=== PATIENT | female | born 1945 | race Caucasian/White ===

== ENCOUNTER → 2016-06-30 | Outpatient (CLI) | payer OTHER | LOC: MMPC 11:11 | PROVIDERS: ATTEND Physician Assistant | DX: Z76.0 Encounter for issue of repeat prescription (principal) | CPT/HCPCS: 99202; G0463 ==

== ENCOUNTER → 2016-07-26 | Outpatient (CLI) | payer OTHER | LOC: MMPC 11:11 | PROVIDERS: ATTEND Internal Medicine | DX: E11.36 Type 2 diabetes mellitus with diabetic cataract (principal); E11.65 Type 2 diabetes mellitus with hyperglycemia; E66.01 Morbid (severe) obesity due to excess calories; E03.9 Hypothyroidism, unspecified; M17.11 Unilateral primary osteoarthritis, right knee; E11.42 Type 2 diabetes mellitus with diabetic polyneuropathy; R01.1 Cardiac murmur, unspecified | CPT/HCPCS: 99215; G0463 ==

== ENCOUNTER → 2016-10-18 | Outpatient (CLI) | payer OTHER ==
[2016-10-18 10:32] LABS: BASOPHILS # (AUTO) 0.15 10*3/UL; BASOPHILS % (AUTO) 2.1 % (0-1); EOSINOPHILS # (AUTO) 0.28 10*3/UL; EOSINOPHILS % (AUTO) 3.9 % (0-8); HEMATOCRIT 33.9 % (37.0-47.0); LYMPHOCYTES # (AUTO) 1.86 10*3/uL; MEAN CORPUSCULAR HEMOGLOBIN 31.3 PG (27-31); MEAN CORPUSCULAR HGB CONC 32.4 g/dL (33-37); MEAN CORPUSCULAR VOLUME 96.6 FL (81-99); MEAN PLATELET VOLUME 9.9 FL (7.4-12.2); MONOCYTES # (AUTO) 0.48 10*3/UL (0.3-0.8); MONOCYTES % (AUTO) 6.7 % (5-15); NEUTROPHILS # (AUTO) 4.36 10*3/UL; RED BLOOD COUNT 3.51 10^6/uL (4.20-5.40)
[2016-10-18 10:44] LABS: CALCIUM 10.4 mg/dL (8.7-10.7); SERUM ALBUMIN 4.1 g/dL (3.5-4.8)
[2016-10-18 10:46] LABS: CHOL/HDL RATIO 8.93 RATIO (0-4.0)
[2016-10-18 10:48] LABS: HEMOGLOBIN A1C 6.14 % (4.2-6.0)
[2016-10-18 10:58] LABS: PLATELET MORPHOLOGY COMMENT NORMAL MORPHOLOGY (NORM); RBC MORPHOLOGY COMMENT NORMAL MORPHOLOGY (NORM); WBC MORPHOLOGY COMMENT NORMAL MORPHOLOGY (NORM)
[2016-10-18 11:03] LABS: LDL CHOLESTEROL,CALCULATED 78.8 mg/dL
[2016-10-18 11:10] LABS: BILIRUBIN,URINE NEGATIVE (NEG); CLARITY,URINE CLEAR (CLEAR); COLOR,URINE YELLOW; GLUCOSE, URINE (UA) 100 mg/dL (NEG); NITRATE,URINE NEGATIVE (NEG); OCCULT BLOOD,URINE MODERATE (NEG); PH,URINE 5.5 (5.0-8.5); PROTEIN,URINE >300 mg/dl (NEG); UROBILINOGEN,URINE 0.2 mg/dL (0.2)
[2016-10-18 11:29] LABS: SQUAMOUS EPITHELIAL CELL,UR MODERATE
[2016-10-18 11:30] LABS: BACTERIA,URINE FEW
--- NOTE | 2016-10-18 11:53 | DI ---
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 Previous Exam: None at this facility. There is no acute soft tissue or bony abnormality. Heart size is normal. Lungs are clear. Mediastinal structures are normal. There are no pulmonary nodules. IMPRESSION: No masses identified.
[2016-10-18 12:12] LABS: CREATININE, URINE 80.4 MG/DL (15-500)
[2016-10-18 14:04] LABS: URINE SAMPLE TYPE CLEAN CATCH URINE
== END ==
LOC: RAD 10:08
PROVIDERS: ATTEND Internal Medicine
DX: D3A.090 Benign carcinoid tumor of the bronchus and lung (principal); E11.40 Type 2 diabetes mellitus with diabetic neuropathy, unspecified; Z79.4 Long term (current) use of insulin; N39.41 Urge incontinence; E66.01 Morbid (severe) obesity due to excess calories; E78.5 Hyperlipidemia, unspecified; E03.9 Hypothyroidism, unspecified; G47.33 Obstructive sleep apnea (adult) (pediatric); M17.11 Unilateral primary osteoarthritis, right knee; R01.1 Cardiac murmur, unspecified; H35.00 Unspecified background retinopathy; R45.4 Irritability and anger
CPT/HCPCS: 36415; 71020; 80053; 80061; 81001; 82043; 83036; 84443; 85025

== ENCOUNTER 2017-04-20 16:25 | Inpatient (IN) ==
[2017-04-20] MEDS ORDERED: NORMAL SALINE 10 ML SYRINGE FLUSH IVP PRN ×2 (17:06→19:37)
[2017-04-20] MEDS ORDERED: Lidocaine 1% 10 MG/ML - 20 ML VIAL SUBCUT ONE ×2 (17:11→21:30)
[2017-04-20 17:13] LABS: BASOPHILS # (AUTO) 0.02 10*3/UL; BASOPHILS % (AUTO) 0.3 % (0-1); EOSINOPHILS # (AUTO) 0.25 10*3/UL; EOSINOPHILS % (AUTO) 3.4 % (0-8); Hematocrit [HCT] 30.3 % (37.0-47.0); Hemoglobin [HGB] 9.7 g/dL (12.0-16.0); LYMPHOCYTES # (AUTO) 1.72 10*3/uL; MEAN CORPUSCULAR VOLUME 96.8 FL (81-99); MEAN PLATELET VOLUME 10.2 FL (7.4-12.2); MONOCYTES # (AUTO) 0.54 10*3/UL (0.3-0.8); MONOCYTES % (AUTO) 7.4 % (5-15); NEUTROPHILS # (AUTO) 4.74 10*3/UL; NEUTROPHILS % (AUTO) 64.9 % (50-80); RED BLOOD COUNT 3.13 10^6/uL (4.20-5.40)
[2017-04-20 17:17] LABS: PLATELET MORPHOLOGY COMMENT NORMAL MORPHOLOGY (NORM); RBC MORPHOLOGY COMMENT NORMAL MORPHOLOGY (NORM); WBC MORPHOLOGY COMMENT NORMAL MORPHOLOGY (NORM)
[2017-04-20 17:26] LABS: BUN/CREATININE RATIO 24.33 (6-20); SERUM ALBUMIN 4.2 g/dL (3.5-4.8); Uric Acid 9.8 mg/dl (2.5-7.5)
--- NOTE | 2017-04-20 18:42 | DI ---
XR KNEE 3 VW,04/20/2017 5:06 PM: Clinical History: Right knee pain Previous Exam: December 15, 2016 Findings: AP, lateral and sunrise views of the right knee are obtained, and demonstrate complete loss of joint space within the medial compartment with underlying sclerosis and some hypodensity consistent with perez bchondral cyst formation. Degenerative changes are noted within the anterior compartment as well. There is osteophyte formation within the anterior compartment. The proximal tibiofibular joint is unremarkable. There are some calcifications within the skin. Impression: Tricompartmental degenerative osteoarthritis of the right knee worst within the medial compartment es sentially unchanged from the prior exam.
--- NOTE | 2017-04-20 19:22 | PDOC ---
Lower Extremity Problem HPI - General Chief Complaint: Lower Extremity Problem/Injury Stated Complaint: LEG PAIN/ INABILITY TO WALK Date Seen by Provider: 04/20/17 Time Seen by Provider: 16:45 Source: POSITIVE: Patient Exam Limitations: POSITIVE: No limitations Nurse's Notes Reviewed & Considered: Yes - History of Present Illness Initial Comments: The patient is a 72-year-old female who is brought to the emergency room by ambulance. Patient has a history of severe chronic right knee pain. She also has a history of diabetes mellitus and chronic renal failure. She was seen in our emergency room in December with pedal edema and severe right knee pain and reportedly some right knee swelling and erythema. She was noted to be in renal failure at that time and was referred to [facility]. Patient was diagnosed with severe degenerative arthritis of the right knee and renal failure. She was evaluated by nephrology and patient states that she has an appointment with Dr. Grey in a few days for consideration of shunt placement. Patient states she has a history of hyperuricemia and thinks that she may be having episodes of "gout pain" in her right knee since December. She's had a cholecystectomy and surgery for small bowel obstructions and his head surgery for an umbilical hernia. She lives with her , who has multiple medical issues. Patient states that since December, at least, she has been able to ambulate in their house trailer only with the assistance of her . Patient relates that her has "medical issues "and is now no longer able to support her. Patient is morbidly obese. Body Location Affected: REPORTS: Lower Extremity (R) (Right knee) Timing: REPORTS: Constant, Getting Worse Duration: >1 week (Progressive pain to her right knee) Severity: Severe Recent Injury: REPORTS: No Context of Injury: DENIES: Fall, Twist, Direct Blow, Incision, Burn, Crush, Stab , Prolonged Pressure on Ext, Other Quality: REPORTS: Aching Modifying Factors: REPORTS: Walking (Patient states that the pain in her right knee has progressed to the point where she is not able to ambulate) Associated Symptoms: DENIES: Chest Pain, Shortness of Breath, Rapid Heart Rate, Fainting, Other Similar Symptoms Previously: Yes (see above) Recent Care Received: REPORTS: Recently Seen, Treated by MD, Hospitalized (See above) Any Prior Injuries Related to Current Complaint?: No - Patient Home Medications Home Medications: Home Medications gabapentin 300 mg capsule 300 mg PO QDAY #90 cap 01/19/17 glyburide 5 mg tablet 5 mg PO BID #180 tab 01/19/17 levothyroxine 88 mcg tablet 88 mcg PO DAILY #90 tab 01/19/17 metoprolol succinate ER 25 mg tablet,extended release 24 hr 25 mg PO QDAY #90 tab 01/19/17 torsemide 20 mg tablet 20 mg PO QDAY #90 tab 01/19/17 venlafaxine ER 150 mg capsule,extended release 24 hr 150 mg PO QAM #90 cap 01/19 lisinopril 10 mg tablet 10 mg PO QDAY #30 tab 01/23/17 tramadol 50 mg tablet 50 mg PO Q4H PRN #180 tab 02/01/17 Blood Sugar Diagnostic [Assure Prism Multi] 0 ea .ROUTE .MEDSUPPLY 04/20/17 Sour Domingo Extract [Tart Domingo Extract] 1,000 mg PO DAILY 04/20/17 - Patient Allergies Allergies/Adverse Reactions: Allergies 3 Allergy/AdvReac Type Severity Reaction Status Date / Time Penicillins AdvReac Severe SWELLING Verified 04/20/17 16:36 Vtnveme-Hiw-Vlr Reductase AdvReac Mild SWELLING Verified 04/20/17 16:36 Inhibitor msg AdvReac Intermediate SWELLING Uncoded 04/20/17 16:36 Past Medical History - heen HEENT History: Denies History Cardiovascular History: Hypertension Respiratory History: Home CPAP Use, Other (please comment) Additional Respiratory History: 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 TOLD SHE'D OUT LIVE THEM SO DIDN'T NEED REMOVED Gastrointestinal History: Small Bowel Obstruction Additional Gastrointestinal History: X5 OR 6. MESH SCREENS PLACED TO SUPPORT BOWEL Genitourinary History: Denies History Endocrine History: Type 2 Diabetes (oral), Hypothyroidism Musculoskeletal History: Gout, Joint Pain Prosthesis or Implant: No Additional Musculoskeletal History: BAD KNEES. NEUROPATHY IN FEET Neurological History: Denies History Blood Disorders: Denies History Psychiatric History: Depression Cancer History: Lung Cancer Treatment / Date(s) of Treatment: TOLD SHE WOULD OUT LIVE THEM In Past Year Been Physically Harmed or Verbally Threatened: No History of MDRO: No Tobacco Use: Former Smoker In the Past 12 Months, Have Used or Abuse Any Substance: None Previous Surgical History: Yes Type / Date of Surgery: APPY AGE 5, T&A AGE 7. SCREENS IN SMALL BOWEL. Anesthesia Reactions: No Past Medical History Reviewed: Reviewed - No Changes ROS - Limitations ROS Limitations: No Limitations Constitution: REPORTS: Denies Symptoms Cardiovascular: REPORTS: Denies Cardiac Symptoms Respiratory: REPORTS: Denies Resp Symptoms Neurological: REPORTS: Denies Neuro Symptoms Gastrointestinal: REPORTS: Denies GI Symptoms Endocrine: REPORTS: Denies Symptoms Musculoskeletal: REPORTS: Joint Pain (Right knee pain) Genitourinary: REPORTS: Denies Symptoms Eyes: REPORTS: Denies Symptoms ENT: REPORTS: Denies Symptoms Skin: REPORTS: Denies Skin Symptoms Lympathic: REPORTS: Denies Lympathic Symptoms Immunologic: POSITIVE: Denies Symptoms Psychiatric: POSITIVE: Denies Psych Symptoms Lower Ext Problem Exam - General Appearance General Appearance: POSITIVE: Alert, Cooperative, No Evidence of Trauma, Moderate Distress, Other (Morbidly obese). NEGATIVE: No Acute Distress - Extremities Lower Extremity: POSITIVE: Other (Examination of the extremities show that the patient has full range of motion, painless, left knee. Full flexion right knee is painful. The right knee has some mild warmth to it. There are no joint effusions. No redness. No deformities. No sensory motor or vascular deficits. Ultrasound of the right knee by radiologist shows no effusions; attempted arthro-centesis was unsuccessful, by radiologist, because of lack of synovial fluid. Arthrocentesis was attempted due to the patient's reported history of gout in her right knee.) Joint Exam: POSITIVE: Normal ROM, Unable to Bear Weight, Other (See note above on lower extremity evaluation). 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 Nml, Pharynx Inspect. Nml, PERRL, EOMI - Respiratory / CVS Respiratory / CVS: POSITIVE: No Respiratory Distress, Breath Sounds Normal, Regular Rate/Rhythm, Heart Sounds Normal Peripheral Pulses: Radial (R): 2+, Radial (L): 2+, Dorsalis-pedis (R): 2+, Dorsalis-pedis (L): 2+ - Abdomen Abdomen: Soft: (All Quadrants), Normal Bowel Sounds: (All Quadrants), Denies Tenderness: (All Quadrants), No Splenomegaly: (All Quadrants), No Hepatomegaly: (All Quadrants), No Guarding: (All Quadrants), No Rebound: (All Quadrants), No Palpable Pulse: (All Quadrants), No Palpabale Mass: (All Quadrants), No Distention: (All Quadrants), No Rigidity: (All Quadrants) Images - Uploaded Photos Uploaded Photos: - Lower Extremities Lower Extremities: 1 - Pain, right knee Procedure - Additional Procedures Additional Procedures: Arthrocentesis (Radiologist attempted arthrocentesis, in view of the patient reported history of gout to the right knee. Ultrasound of the right knee showed no effusion. Attempted arthrocentesis by radiologist unsuccessful. Please refer to his procedure note.) Lower Ext Problem Progress - Results Reviewed by me Xrays/CTs/US Reviewed by me: Yes Discussed with Radiologist: No Radiology Findings: X-ray right knee shows severe degenerative changes of the right knee, especially the medial compartment. Lab Results Reviewed by Me: Yes (renal functions stable since last CMP in December) CBC and BMP: 04/20/17 17:10 04/20/17 17:10 - Patient's Progress Pain Medication Addressed: POSITIVE: No (Patient not in much pain as long as she is off her leg.) Re-Examine Time: 19:05 Status: POSITIVE: Unchanged, Re-Examined - Consult Consult (If Yes, Name of Consulting MD & Time Called): Yes (Dr. Dumont, hospitalist, [id number]) Consulting MD will see pt:: POSITIVE: [facility] [place] Admit Counseled: POSITIVE: Patient, RE: Lab Results, RE: Radiology Results, RE: DX, RE : Need for F/U Patient Care Time - Estimated PCT Patient Care Time (In Minutes): 60 Vital Signs - Recent Vital Signs Vital Signs: Vital Signs (Last 8 hours) Temp Pulse Resp BP Pulse Ox 04/20/17 15:48 96.8 F 92 18 158/90 99 - VS Reviewed Vital Signs Reviewed: Yes Discharge Clinical Impression: Knee arthropathy, Type 2 diabetes mellitus with diabetic neuropathy, without long-term current use of insulin, Chronic renal failure, Obesity Discharge Disposition: Admit to Inpatient Condition: Fair Date Decision to Admit to Inpatient: 04/20/17 Time Decision to Admit to Inpatient: 19:00
[2017-04-20] MEDS ORDERED: ONDANSETRON 4 MG/2 ML VIAL IVP PRN (19:37)
[2017-04-20] MEDS ORDERED: CALCIUM CARBONATE 500 MG (TUMS) CHEWABLE TABLET PO PRN (19:37)
[2017-04-20] MEDS ORDERED: LIDOCAINE W/ SODIUM BICARB 0.5 ML SYR SUBD PRN (19:37)
[2017-04-20] MEDS ORDERED: DOCUSATE 100 MG CAPSULE PO PRN (19:37)
[2017-04-20] MEDS ORDERED: BETAMET ACET/BETAMET NA PH 6 MG/1 ML - 5 ML IM SCH (21:30)
--- NOTE | 2017-04-20 22:20 | PDOC ---
HPI - History of Present Illness Date of Service: 04/20/17 Time of Service: 22:15 Chief Complaint: Right knee pain History of Present Illness: This very pleasant 72-year-old female with right knee pain. Has been progressively getting worse over the years but really took a turn in December 2016 when she had to be admitted in [place], [place], in relation to her kidney disease and right knee pain. They told her that she may have gout. They placed on some medications that seemed to help but then stopped them at the time of discharge. I do not have those records for review. The patient notes that she has been having more limited mobility and has gone from a cane to a walker. She is worried about falling at home due to her right knee pain. She occasionally takes tramadol for this. She cannot take anti-inflammatories due to her end-stage kidney disease. Tylenol has not really helped. She's never done injections. She had an appointment scheduled with an orthopedic physician , but canceled, as somebody had told her that she needed to lose weight prior to knee replacement if that was going to be an option. X-rays show 3 compartment osteoarthritis. Overall, her pain threshold is high, but it is been very limiting for her knee pain and she did not feel like she could walk very well today so she came in for evaluation. In the emergency room, they arranged for an aspiration but no fluid was obtained. This was done by radiology. Past Medical History Medical History: 1. End-stage renal disease, stage IV to stage V. 2. Hypertension. 3. Hypercholesterolemia. 4. Diabetes mellitus type II. 5. Anemia of end-stage renal disease. 6. Per my review of the medical record, carcinoid tumor of the lung. Surgical History: 1. Cholecystectomy. 2. Appendectomy. 3. Umbilical hernia repair and multiple surgeries related to small bowel obstructions since subsequently. Pertinent Family History: No history of kidney disease in the family. Past Social History: Patient is been 3 times. Is been her current for over 24 years. 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 She had 4 children, but one of her sons due to [place]'s tran. She has a daughter with Lohn's tran Tobacco Use: Former Smoker In the Past 12 Months, Have Used or Abuse Any of the Following Substance: None Alcohol Use: None Medication / Allergies Home Medications: Home Medications 3 Medication Instructions Recorded Confirmed Type gabapentin 300 mg capsule 300 mg PO QDAY #90 cap 01/19/17 04/20/17 Rx glyburide 5 mg tablet 5 mg PO BID #180 tab 01/19/17 04/20/17 Rx levothyroxine 88 mcg tablet 88 mcg PO DAILY #90 tab 01/19/17 04/20/17 Rx metoprolol succinate ER 25 mg 25 mg PO QDAY #90 tab 01/19/17 04/20/17 Rx tablet,extended release 24 hr torsemide 20 mg tablet 20 mg PO QDAY #90 tab 01/19/17 04/20/17 Rx venlafaxine ER 150 mg 150 mg PO QAM #90 cap 01/19/17 04/20/17 Rx capsule,extended release 24 hr lisinopril 10 mg tablet 10 mg PO QDAY #30 tab 01/23/17 04/20/17 Rx tramadol 50 mg tablet 50 mg PO Q4H PRN #180 tab 02/01/17 04/20/17 Rx Blood Sugar Diagnostic [Assure 0 ea .ROUTE .MEDSUPPLY 04/20/17 04/20/17 History Prism Multi] Sour Domingo Extract [Tart Domingo 1,000 mg PO DAILY 04/20/17 04/20/17 History Extract] Allergies/Adverse Reactions: Allergies 3 Allergy/AdvReac Type Severity Reaction Status Date / Time Penicillins AdvReac Severe SWELLING Verified 04/20/17 16:36 Eimbpep-Sbn-Xxi Reductase AdvReac Mild SWELLING Verified 04/20/17 16:36 Inhibitor msg AdvReac Intermediate SWELLING Uncoded 04/20/17 16:36 Review of Systems - Review of Systems All Systems: Reviewed & No Additional Complaints Except as Stated (I did 12 point review of systems and other than that discussed in history present illness the review systems is negative. Exceptions are noted below.) - Cardiovascular Cardiovascular: REPORTS: Other (History of murmur.) Exam - Vitals Vital Signs: Vital Signs Temperature 98.0 F Temperature Source Temporal Artery Scan Pulse Rate [Pulse Oximeter] 82 Pulse Rate 88 Respiratory Rate 21 Blood Pressure [Right Arm] 156/74 Blood Pressure 158/84 Pulse Ox 98 Oxygen Delivery Method Room Air - General General Appearance: No Acute Distress, Cooperative - Head Head Exam: Normal Inspection, Normocephalic, Atraumatic - Eye Eye Exam: POSITIVE: No Scleral Icterus - ENT ENT Exam: POSITIVE: Mucous Membranes Moist - Neck Neck Exam: Normal Inspection, No Tenderness, No Lymphadenopathy, No Thyromegaly - Respiratory Respiratory Exam: POSITIVE: Clear to Auscultation - Bilaterally, Breathing Non Labored, Normal to Percussion and Palpation - Cardiovascular Cardiovascular Exam: POSITIVE: RRR, No Murmur, No Clicks, No Gallops, No Rubs, No JVD - GI/Abdominal GI/Abdominal Exam: POSITIVE: Normal Bowel Sounds, Non Tender, Non Distended, Soft - Rectal Rectal Exam: POSITIVE: Deferred - External Exam: POSITIVE: Deferred Exam: POSITIVE: Deferred - Extremities Extremities Exam: POSITIVE: No Clubbing Present, No Edema Present, No Cyanosis Present Additional Extremities Exam Details: Tenderness to palpation on knee on lateral, medial, and midline palpation. - Neurological Neurological Exam: POSITIVE: Alert, Oriented x 3, No Facial Droop, Speech Intact / Clear, Moves All Extremities Equally - Psychiatric Psychiatric Exam: POSITIVE: Normal Affect, Normal Mood - Integumentary Integumentary Exam: POSITIVE: Normal Color, Warm, Dry, Intact Results - Labs CBC and BMP: 04/20/17 17:10 04/20/17 17:10 Additional Lab Results: Laboratory Results 04/20/17 04/20/17 Range/Units 17:10 17:10 WBC 7.30 (4.8-10.8) 10^3/uL RBC 3.13 L (4.20-5.40) 10^6/uL Hgb 9.7 L (12.0-16.0) g/dL Hct 30.3 L (37.0-47.0) % MCV 96.8 (81-99) FL MCH 31.0 (27-31) PG MCHC 32.0 L (33-37) g/dL RDW Std Deviation 47.8 (39-50) fL RDW Coeff of Miranda 14.1 (11.5-14.5) % Plt Count 232 (140-350) 10*3/uL MPV 10.2 (7.4-12.2) FL Immature Gran % (Auto) 0.4 (0-5) % Neut % (Auto) 64.9 (50-80) % Lymph % (Auto) 23.6 (10-50) % [place] % (Auto) 7.4 (5-15) % Eos % (Auto) 3.4 (0-8) % Baso % (Auto) 0.3 (0-1) % Immature Gran # (Auto) 0.03 10*3/UL Neut # (Auto) 4.74 10*3/UL Lymph # (Auto) 1.72 10*3/uL [place] # (Auto) 0.54 (0.3-0.8) 10*3/UL Eos # (Auto) 0.25 10*3/UL Baso # (Auto) 0.02 10*3/UL WBC Morphology Comment Normal morphology (NORM) Plt Morphology Comment Normal morphology (NORM) RBC Morph Comment Normal morphology (NORM) Sodium 137 (135-145) meq/L Potassium 5.1 (3.8-5.2) meq/L Chloride 104 (98-112) meq/L Carbon Dioxide 19 L (23-33) meq/L Anion Gap 14 (5-20) BUN 73 H (7-22) mg/dL Creatinine 3.0 H (0.50-1.20) mg/dL Estimated GFR 15 (>60 ml/min/1.73m(2)) BUN/Creatinine Ratio 24.33 H (6-20) Glucose 189 H (78-110) mg/dL Calculated Osmolality 310.0 H (267-292) mOsm/kg Uric Acid 9.8 H (2.5-7.5) mg/dl Calcium 10.6 (8.7-10.7) mg/dL Total Bilirubin 0.3 (0.3-1.2) mg/dL AST 14 (8-39) IU/L ALT 22 (9-52) IU/L Alkaline Phosphatase 110 (38-126) IU/L C-Reactive Protein 2.1 H (0.0-0.9) mg/dL Total Protein 7.7 (6.1-8.0) g/dL Albumin 4.2 (3.5-4.8) g/dL Globulin 3.5 (2.50-4.10) g/dL Albumin/Globulin Ratio 1.20 L (1.3-2.0) mg/g - Imaging Status: Image Reviewed by Me (X-ray shows arthritis of the right knee.) Assessment and Plan - Patient Problems (1) Osteoarthritis of right knee Current Visit: Yes Status: Acute Code(s): M17.11 - Unilateral primary osteoarthritis, right knee Qualifiers: Osteoarthritis type: primary Qualified Code(s): M17.11 - Unilateral primary osteoarthritis, right knee (2) Hypertension Current Visit: Yes Status: Acute Code(s): I10 - Essential (primary) hypertension Qualifiers: Hypertension type: essential hypertension Qualified Code(s): I10 - Essential (primary) hypertension (3) Chronic renal failure Current Visit: Yes Status: Acute Code(s): N18.9 - Chronic kidney disease, unspecified Qualifiers: Chronic kidney disease stage: stage 4 (severe) Qualified Code(s): N18.4 - Chronic kidney disease, stage 4 (severe) (4) Type 2 diabetes mellitus with diabetic neuropathy, without long-term current use of insulin Current Visit: Yes Status: Chronic Onset Date: 10/17/16 Code(s): E11.40 - Type 2 diabetes mellitus with diabetic neuropathy, unspecified (5) Hypothyroidism Current Visit: Yes Status: Chronic Onset Date: 02/04/16 Code(s): E03.9 - Hypothyroidism, unspecified Qualifiers: Hypothyroidism type: acquired Qualified Code(s): E03.9 - Hypothyroidism, unspecified - Assessment / Plan Additional Assessment/Plan Details: We will admit the patient for observation. PT and OT will be ordered for strengthening and conditioning. The patient likely needs total knee arthroplasty. Given her kidney disease and chronic renal failure, I think this would be best coordinated in a center where she has nephrology support in case of any acute on chronic kidney disease. He' ll discuss further with orthopedics on curbside consultation. I offered the patient arthrocentesis with steroid and lidocaine injection. I discussed the risks and benefits and the patient agreed. That is a procedure that is done separate of this evaluation. Maintain home medications but uses insulin therapy as necessary on sliding scale here. Full code. The patient states to me that she would not want long-term ventilatory support, but short-term ventilatory support in the setting of pneumonias or such related events would be fine. Tramadol when necessary for pain. I discussed above plan with the patient and she agreed.
[2017-04-20] MEDS ORDERED: Insulin Sliding Scale Protocol SUBCUT PRN (22:34)
[2017-04-20] MEDS ORDERED: Glucagon Inj Vial 1 MG/ML VIAL IM PRN (22:34)
[2017-04-20] MEDS ORDERED: DEXTROSE 50%-WATER SYRINGE 50 ML SYRINGE IVP PRN (22:34)
[2017-04-20] MEDS ORDERED: DEXTROSE 31 GM GEL PO PRN (22:34)
--- NOTE | 2017-04-20 22:34 | PROCEDURE1 ---
Procedure - - Procedure Performed: Arthrocentesis : Major Joint without US Guidance (Right knee arthrocentesis) Procedure Note: Procedure Performed: Therapeutic Arthrocentesis, Knee, right side Date Procedure Performed: 04/20/2017 Indications for Procedure: 1. osteoarthritis right knee 2. effusion not present Risks and Benefits: Risks described as bleeding, infection, or skin necrosis, and benefits as pain relief, the patient consented to have the knee aspiration done. The patient verbally consented to the procedure. Anesthesia: Local, lidocaine 5 MLS Description of Procedure: Patient was prepped and draped in usual fashion. Using a lateral approach, a 1- 1/2 inch 21-gauge needle attached to a 10 mL syringe was inserted into the right knee joint, containing a 5 mL's of 1% lidocaine and 1 mL of Celestone 6 mg per mL. This solution was injected into the knee joint. The needle was withdrawn the area was cleansed with alcohol swabs. Hemostasis was achieved. A Band-Aid was applied. After the procedure is done, the patient reported improvement in her pain. Disposition: patient remains admitted under observation on the medical floor
[2017-04-21] MEDS: traMADol 50 MG TABLET PO PRN ×4 (00:50→21:16)
[2017-04-21] MEDS: ACETAMINOPHEN 325 MG TABLET PO PRN ×3 (01:26→21:16)
[2017-04-21] MEDS: LEVOTHYROXINE 88 MCG TABLET PO SCH (04:32)
[2017-04-21] MEDS: Insulin Lispro Flexpen 300 UNIT/3 ML INSULN.PEN SUBCUT SCH ×4 (07:27→21:12)
[2017-04-21] MEDS ORDERED: GABAPENTIN 300 MG CAPSULE PO SCH (09:00)
[2017-04-21] MEDS ORDERED: SOUR CHERRY EXTRACT 1000 MG PO SCH (09:00)
[2017-04-21] MEDS: VENLAFAXINE XR 75 MG CAP PO SCH (09:13)
[2017-04-21] MEDS: METOPROLOL SUCCINATE 25 MG SR 24H TABLET PO SCH (09:13)
[2017-04-21] MEDS: LISINOPRIL 10 MG TABLET PO SCH (09:13)
[2017-04-21] MEDS: TORSEMIDE 20 MG PO SCH (09:52)
--- NOTE | 2017-04-21 16:46 | PDOC(PROG) ---
Date and Time of Service: 04/21/2017, 1635 Interval History: No chest pain, no shortness breath, no nausea or vomiting. Patient states that her right knee pain and discomfort there, but she's got more range of motion and it is better than on admission. She strongly believes she may need a swing bed. Her diabetes looks to be out of control with blood sugars in the 200s, and am concerned with her chronic kidney disease that her potassium is at 5.8 so I'm going to admit her as an inpatient. Objective : Data - Labs CBC and BMP: 04/20/17 17:10 04/21/17 04:48 Additional Lab Results: Laboratory Results 04/20/17 04/20/17 04/21/17 Range/Units 17:10 17:10 04:48 WBC 7.30 (4.8-10.8) 10^3/uL RBC 3.13 L (4.20-5.40) 10^6/uL Hgb 9.7 L (12.0-16.0) g/dL Hct 30.3 L (37.0-47.0) % MCV 96.8 (81-99) FL MCH 31.0 (27-31) PG MCHC 32.0 L (33-37) g/dL RDW Std Deviation 47.8 (39-50) fL RDW Coeff of Miranda 14.1 (11.5-14.5) % Plt Count 232 (140-350) 10*3/uL MPV 10.2 (7.4-12.2) FL Immature Gran % (Auto) 0.4 (0-5) % Neut % (Auto) 64.9 (50-80) % Lymph % (Auto) 23.6 (10-50) % [place] % (Auto) 7.4 (5-15) % Eos % (Auto) 3.4 (0-8) % Baso % (Auto) 0.3 (0-1) % Immature Gran # (Auto) 0.03 10*3/UL Neut # (Auto) 4.74 10*3/UL Lymph # (Auto) 1.72 10*3/uL [place] # (Auto) 0.54 (0.3-0.8) 10*3/UL Eos # (Auto) 0.25 10*3/UL Baso # (Auto) 0.02 10*3/UL WBC Morphology Comment Normal morphology (NORM) Plt Morphology Comment Normal morphology (NORM) RBC Morph Comment Normal morphology (NORM) Sodium 137 138 (135-145) meq/L Potassium 5.1 5.8 H (3.8-5.2) meq/L Chloride 104 108 (98-112) meq/L Carbon Dioxide 19 L 16 L (23-33) meq/L Anion Gap 14 14 (5-20) BUN 73 H 70 H (7-22) mg/dL Creatinine 3.0 H 2.8 H (0.50-1.20) mg/dL Estimated GFR 15 17 (>60 ml/min/1.73m(2)) BUN/Creatinine Ratio 24.33 H 25.00 H (6-20) Glucose 189 H 252 H (78-110) mg/dL Calculated Osmolality 310.0 H 315.0 H (267-292) mOsm/kg Uric Acid 9.8 H (2.5-7.5) mg/dl Calcium 10.6 10.7 (8.7-10.7) mg/dL Total Bilirubin 0.3 (0.3-1.2) mg/dL AST 14 (8-39) IU/L ALT 22 (9-52) IU/L Alkaline Phosphatase 110 (38-126) IU/L C-Reactive Protein 2.1 H (0.0-0.9) mg/dL Total Protein 7.7 (6.1-8.0) g/dL Albumin 4.2 (3.5-4.8) g/dL Globulin 3.5 (2.50-4.10) g/dL Albumin/Globulin Ratio 1.20 L (1.3-2.0) mg/g Objective : Exam - General General Appearance: No Acute Distress, Cooperative - Eye Eye Exam: No Scleral Icterus - ENT ENT Exam: Mucous Membranes Moist - Respiratory Respiratory Exam: Clear to Auscultation - Bilaterally, Breathing Non Labored - Cardiovascular Cardiovascular Exam: RRR, No Murmur, No Clicks, No Gallops, No Rubs, No JVD - GI/Abdominal GI/Abdominal Exam: Normal Bowel Sounds, Non Tender, Non Distended, Soft - Extremities Extremities Exam: No Clubbing Present, No Edema Present, No Cyanosis Present - Neurological Neurological Exam: Alert, Oriented x 3, No Facial Droop, Speech Intact / Clear Assessment and Plan - Patient Problems (1) Poorly controlled type 2 diabetes mellitus Current Visit: Yes Status: Acute Code(s): E11.65 - Type 2 diabetes mellitus with hyperglycemia (2) Hyperkalemia Current Visit: Yes Status: Acute Code(s): E87.5 - Hyperkalemia (3) Osteoarthritis of right knee Current Visit: Yes Status: Acute Code(s): M17.11 - Unilateral primary osteoarthritis, right knee Qualifiers: Osteoarthritis type: primary Qualified Code(s): M17.11 - Unilateral primary osteoarthritis, right knee (4) Hypertension Current Visit: Yes Status: Acute Code(s): I10 - Essential (primary) hypertension Qualifiers: Hypertension type: essential hypertension Qualified Code(s): I10 - Essential (primary) hypertension (5) Chronic renal failure Current Visit: Yes Status: Acute Code(s): N18.9 - Chronic kidney disease, unspecified Qualifiers: Chronic kidney disease stage: stage 4 (severe) Qualified Code(s): N18.4 - Chronic kidney disease, stage 4 (severe) (6) Hypothyroidism Current Visit: Yes Status: Chronic Onset Date: 02/04/16 Code(s): E03.9 - Hypothyroidism, unspecified Qualifiers: Hypothyroidism type: acquired Qualified Code(s): E03.9 - Hypothyroidism, unspecified - Assessment / Plan Additional Assessment/Plan Details: admit as inpatient to more closely monitor DMII may need to intervene on potassium with kayexalate if potassium persists at higher level I will recheck labs in a.m. Continue every before meals and at bedtime blood sugar monitoring. The patient may require cardiac screening as well and although she is not having any anginal symptoms, she may benefit from stress testing for risk stratification prior to any surgeries for her knee. I spoke with orthopedics here, and this is definitely a knee replacement that should be evaluated elsewhere in terms of potential for such a surgery. The patient at a minimum, would need a surgery center where there is a pit manager available. PT and OT. Continue tramadol as necessary for pain. Ultimately our plan would be to continue to strengthening condition the patient , probably proceed toward swing bed, and continue therapy there to strengthen the patient enough to be able to feel comfortable to walk at home.
[2017-04-21] MEDS: Insulin Glargine SoloStar Inj 100 UNIT/ML INSULN.PEN SUBCUT SCH (21:11)
[2017-04-22] MEDS: LEVOTHYROXINE 88 MCG TABLET PO SCH (04:38)
[2017-04-22 05:43] LABS: BUN/CREATININE RATIO 27.09 (6-20)
[2017-04-22] MEDS: Insulin Lispro Flexpen 300 UNIT/3 ML INSULN.PEN SUBCUT SCH ×4 (07:30→21:12)
[2017-04-22] MEDS: LISINOPRIL 10 MG TABLET PO SCH (08:57)
[2017-04-22] MEDS: METOPROLOL SUCCINATE 25 MG SR 24H TABLET PO SCH (08:57)
[2017-04-22] MEDS: VENLAFAXINE XR 75 MG CAP PO SCH (08:57)
[2017-04-22] MEDS: traMADol 50 MG TABLET PO PRN ×2 (08:57→21:09)
[2017-04-22] MEDS: TORSEMIDE 20 MG PO SCH (08:59)
[2017-04-22] MEDS: ACETAMINOPHEN 325 MG TABLET PO PRN ×2 (09:01→21:09)
--- NOTE | 2017-04-22 11:23 | OT.PROG ---
Progress Note Progress Note: S: pt states that her left knee hurts now but her R knee is feeling better. O: pt was seen in her room and she completed UE/LE dressing with mod Ind as it took her a little longer to complete and she needed assistance to stand up and complete donning of LE's. She completed transfer approx 15 ft to hallway where she sat in a w/c and was transferred down to therapy. She completed x1 more transfer to mat table where she completed sit to stands x10. She also completed 1# box x10 LAQ 0#, marches 2# x10. She then completed UE exercises with RTb in all ranges x15 with BUE's. She completed one more transfer approx 30 ft to arm bike where she completed 4 min to increase her activity tolerance. She was returned to her room in w/c and placed in chair with alarm on and call light within reach. A: pt completed transfers well but is not confident in her LE strength and knee pain increases distance and difficulty of transfers. P: continue per POC.
[2017-04-22] MEDS ORDERED: Lidocaine 1% 10 MG/ML - 20 ML VIAL SUBCUT ONE (12:13)
[2017-04-22] MEDS ORDERED: LIDOCAINE 2% 20 MG/ML - 20 ML VIAL ONE (12:23)
--- NOTE | 2017-04-22 13:01 | PDOC(PROG) ---
Date and Time of Service: 04/22/2017, 1247 Interval History: No chest pains today, no shortness of breath, no nausea or vomiting. She states she's actually improving in terms of her mobility, but still needs more work. She states her left knee is really starting to aggravate her and cause significant pain and she asks if we can inject that knee as well. We will check an x-ray first. Objective : Data - Labs CBC and BMP: 04/20/17 17:10 04/22/17 04:40 Additional Lab Results: Selected Entries 04/21/17 20:38 04/22/17 07:00 04/22/17 11:00 Finger Stick Blood Glucose 201 H 128 H 110 Objective : Exam - General General Appearance: No Acute Distress, Cooperative Additional General Exam Details: Vital Signs (24 hrs) Temp Pulse Resp BP Pulse Ox 04/22/17 09:00 97.2 F 76 20 141/60 96 04/22/17 04:40 96.8 F 90 18 133/64 96 04/22/17 00:40 97.4 F 91 16 165/79 98 04/21/17 20:38 97.2 F 83 12 162/65 96 04/21/17 16:43 97.5 F 72 28 H 103/47 99 - Eye Eye Exam: No Scleral Icterus - ENT ENT Exam: Mucous Membranes Moist - Respiratory Respiratory Exam: Clear to Auscultation - Bilaterally, Breathing Non Labored - Cardiovascular Cardiovascular Exam: RRR, No Murmur, No Clicks, No Gallops, No Rubs, No JVD - GI/Abdominal GI/Abdominal Exam: Normal Bowel Sounds, Non Tender, Non Distended, Soft - Extremities Extremities Exam: No Clubbing Present, No Edema Present, No Cyanosis Present, Tenderness (Left knee joint tender to palpation.) - Neurological Neurological Exam: Alert, Oriented x 3, No Facial Droop, Speech Intact / Clear, Moves All Extremities Equally Assessment and Plan - Patient Problems (1) Poorly controlled type 2 diabetes mellitus Current Visit: Yes Status: Acute Code(s): E11.65 - Type 2 diabetes mellitus with hyperglycemia (2) Hyperkalemia Current Visit: Yes Status: Acute Code(s): E87.5 - Hyperkalemia (3) Osteoarthritis of right knee Current Visit: Yes Status: Acute Code(s): M17.11 - Unilateral primary osteoarthritis, right knee Qualifiers: Osteoarthritis type: primary Qualified Code(s): M17.11 - Unilateral primary osteoarthritis, right knee (4) Hypertension Current Visit: Yes Status: Acute Code(s): I10 - Essential (primary) hypertension Qualifiers: Hypertension type: essential hypertension Qualified Code(s): I10 - Essential (primary) hypertension (5) Chronic renal failure Current Visit: Yes Status: Acute Code(s): N18.9 - Chronic kidney disease, unspecified Qualifiers: Chronic kidney disease stage: stage 4 (severe) Qualified Code(s): N18.4 - Chronic kidney disease, stage 4 (severe) (6) Hypothyroidism Current Visit: Yes Status: Chronic Onset Date: 02/04/16 Code(s): E03.9 - Hypothyroidism, unspecified Qualifiers: Hypothyroidism type: acquired Qualified Code(s): E03.9 - Hypothyroidism, unspecified (7) Osteoarthritis of left knee Current Visit: Yes Status: Acute Code(s): M17.12 - Unilateral primary osteoarthritis, left knee Qualifiers: Osteoarthritis type: primary Qualified Code(s): M17.12 - Unilateral primary osteoarthritis, left knee - Assessment / Plan Additional Assessment/Plan Details: Given significant pain now on the left knee, presumably related overcompensation for the right knee, I will go ahead and inject that with steroids as well. Continue close monitoring of diabetes, particularly with steroid injection of the knee. PT and OT Swing bed evaluation. I spoke with orthopedics here, and we both agree that the patient would be better served from secondary or tertiary care center where they have nephrology support for a knee replacement. We would consider referral to [facility] as the swing bed stay gets to a near end. I'm having films pushed to [place] so that they are there for review had a later date.
--- NOTE | 2017-04-22 13:40 | DI ---
EXAM: XR Left Knee, 3 views CLINICAL HISTORY: ITS.REASON increased left knee pain, question OA Physician Notes: Tech Comments: TECHNIQUE: Three views of the left knee. COMPARISON: No relevant prior studies available. FINDINGS: There is no fracture or dislocation. There is marked degeneration of the medial and patellofemoral compartments with joint space narrowing and osteophyte formation. Nonspecific soft tissue density to the lateral left calf, potentially related to chronically occluded superficial venous varicosities. IMPRESSION: Advanced degeneration of the medial patellofemoral compartments of the left knee. Soft tissue calcification, most likely related to chronic superficial venous thrombosis
--- NOTE | 2017-04-22 16:08 | PROCEDURE1 ---
Procedure - - Procedure Performed: Arthrocentesis : Major Joint without US Guidance (Left knee ) Procedure Note: Procedure Performed: Therapeutic Arthrocentesis, Knee on left side Date Procedure Performed: 04/22/2017 Indications for Procedure: 1. osteoarthritis left knee 2. Small effusion likely present. Risks and Benefits: Risks described as bleeding, infection, or skin necrosis, and benefits as pain relief, the patient consented to have the knee aspiration done. Patient gave verbal consent to have the procedure done at bedside. RN present for procedure. Left knee confirmed. Anesthesia: Local, 1% lidocaine, 5 mL Description of Procedure: Patient was prepped and draped in usual fashion. Using a lateral approach, a 1- 1/2 inch 25-gauge needle attached to a 10 mL syringe was inserted into the left knee joint, containing 5 mL of 1% lidocaine and 1 mL of 6 mg Celestone per mL. This solution was injected into the knee joint. The needle was withdrawn the area was cleansed with alcohol swabs. Hemostasis was achieved. A Band-Aid was applied. After the procedure is done, the patient reported improvement in her pain with improved movement. Disposition: Patient remains admitted as an inpatient for management of her diabetes, monitoring of her potassium for potential interventions, and management of her osteoarthritis.
[2017-04-22] MEDS: BETAMET ACET/BETAMET NA PH 6 MG/1 ML - 5 ML IM SCH (16:50)
[2017-04-22] MEDS: GABAPENTIN 300 MG CAPSULE PO SCH (21:03)
[2017-04-22] MEDS: Insulin Glargine SoloStar Inj 100 UNIT/ML INSULN.PEN SUBCUT SCH (21:03)
[2017-04-23] MEDS: LEVOTHYROXINE 88 MCG TABLET PO SCH (04:40)
[2017-04-23 05:09] LABS: BUN/CREATININE RATIO 28.96 (6-20)
[2017-04-23] MEDS ORDERED: SODIUM POLYSTYRENE SULFONATE 15 GM/60 ML PO ONE ×3 (05:23→11:00)
[2017-04-23] MEDS: Insulin Lispro Flexpen 300 UNIT/3 ML INSULN.PEN SUBCUT SCH ×4 (07:29→20:18)
[2017-04-23] MEDS: VENLAFAXINE XR 75 MG CAP PO SCH (08:53)
[2017-04-23] MEDS: METOPROLOL SUCCINATE 25 MG SR 24H TABLET PO SCH (08:54)
[2017-04-23] MEDS: TORSEMIDE 20 MG PO SCH (08:54)
--- NOTE | 2017-04-23 11:10 | PT.PROG ---
Progress Note Progress Note: S. Patient stated that she was worried about needing to go to the restroom and didn't want to go to the therapy gym. She reports that the knee she got a shot in is feeling much better this morning. O. Patient performed seated exercises in the form of; Long arc quads, marches, minute drills (2x1 minute) sit to stands, heel toe raises, resisted knee flexion , clam shells, all with 2# and red thera band all x 10. Patient performed upper extremity exercises in the form of; bicep/tricep curls, shoulder flexion/ extension, horizontal abduction, Internal/external rotation, rows all x 10 bilaterally with red thera band. Patient was left in chair with alarm and call light. A. Patient tolerated well, she was able to perform all exercises she is concerned with getting strong enough to get back to normal. Patient requested to help her stay motivated. Patient would continue to benefit from skilled therapy to increase strength and mobility. P. continue POC.
[2017-04-23] MEDS: BETAMET ACET/BETAMET NA PH 6 MG/1 ML - 5 ML IM SCH (12:03)
--- NOTE | 2017-04-23 14:12 | PDOC(PROG) ---
Date and Time of Service: 04/23/2017, 1409 Interval History: No chest pain, shortness breath, nausea or vomiting. Left knee does feel better today, still has pain bilaterally but movement is improving to some degree. Has been on lisinopril, but hyperkalemic, now going to require Kayexalate and discontinuation of MARCUS inhibitor. I don't think the patient is a good MARCUS inhibitor candidate anymore. She has follow-up with renal later this week. She would still like to do swing bed. Objective : Data - Labs CBC and BMP: 04/20/17 17:10 04/23/17 04:35 Objective : Exam - General General Appearance: No Acute Distress, Cooperative Additional General Exam Details: Vital Signs (24 hrs) Temp Pulse Pulse Resp BP Pulse Ox 04/23/17 13:00 98.1 F 88 20 144/71 97 04/23/17 11:00 79 04/23/17 07:16 97.8 F 86 20 145/79 94 04/23/17 05:00 97.7 F 78 16 137/70 95 04/23/17 03:56 92 04/23/17 00:25 97.9 F 76 18 150/71 96 04/22/17 21:14 97.2 F 76 20 151/71 97 04/22/17 19:50 96 04/22/17 19:00 74 04/22/17 15:56 97 F 74 20 143/58 97 - Eye Eye Exam: No Scleral Icterus - Cardiovascular Cardiovascular Exam: RRR, No Murmur, No Clicks, No Gallops, No Rubs, No JVD - GI/Abdominal GI/Abdominal Exam: Normal Bowel Sounds, Non Tender, Non Distended, Soft - Extremities Extremities Exam: No Clubbing Present, No Edema Present, No Cyanosis Present - Neurological Neurological Exam: Alert, Oriented x 3, No Facial Droop, Speech Intact / Clear, Moves All Extremities Equally Assessment and Plan - Patient Problems (1) Poorly controlled type 2 diabetes mellitus Current Visit: Yes Status: Acute Code(s): E11.65 - Type 2 diabetes mellitus with hyperglycemia (2) Hyperkalemia Current Visit: Yes Status: Acute Code(s): E87.5 - Hyperkalemia (3) Osteoarthritis of right knee Current Visit: Yes Status: Acute Code(s): M17.11 - Unilateral primary osteoarthritis, right knee Qualifiers: Osteoarthritis type: primary Qualified Code(s): M17.11 - Unilateral primary osteoarthritis, right knee (4) Hypertension Current Visit: Yes Status: Acute Code(s): I10 - Essential (primary) hypertension Qualifiers: Hypertension type: essential hypertension Qualified Code(s): I10 - Essential (primary) hypertension (5) Chronic renal failure Current Visit: Yes Status: Acute Code(s): N18.9 - Chronic kidney disease, unspecified Qualifiers: Chronic kidney disease stage: stage 4 (severe) Qualified Code(s): N18.4 - Chronic kidney disease, stage 4 (severe) (6) Hypothyroidism Current Visit: Yes Status: Chronic Onset Date: 02/04/16 Code(s): E03.9 - Hypothyroidism, unspecified Qualifiers: Hypothyroidism type: acquired Qualified Code(s): E03.9 - Hypothyroidism, unspecified (7) Osteoarthritis of left knee Current Visit: Yes Status: Acute Code(s): M17.12 - Unilateral primary osteoarthritis, left knee Qualifiers: Osteoarthritis type: primary Qualified Code(s): M17.12 - Unilateral primary osteoarthritis, left knee - Assessment / Plan Additional Assessment/Plan Details: Stop lisinopril. Use Kayexalate, recheck electrolytes later today and again in a.m. Hopefully report swing bed early this week. Continue PT and OT for bad knee pain. Thus far, diabetes doing very well under insulin management. I do not think the patient makes a good candidate for oral therapy for diabetes anymore. Like to work towards getting the patient orthopedic evaluation set up as an outpatient later on down the road for potential candidacy for knee replacement. May need a stress test repeated to risk stratify, and we can do this as an outpatient.
[2017-04-23] MEDS: Insulin Glargine SoloStar Inj 100 UNIT/ML INSULN.PEN SUBCUT SCH (20:18)
[2017-04-23] MEDS: GABAPENTIN 300 MG CAPSULE PO SCH (20:18)
[2017-04-23] MEDS: traMADol 50 MG TABLET PO PRN (20:43)
[2017-04-23] MEDS: ACETAMINOPHEN 325 MG TABLET PO PRN (20:43)
[2017-04-24] MEDS: LEVOTHYROXINE 88 MCG TABLET PO SCH (04:31)
[2017-04-24] MEDS: traMADol 50 MG TABLET PO PRN ×3 (04:31→21:09)
[2017-04-24 04:57] LABS: BUN/CREATININE RATIO 28.27 (6-20)
[2017-04-24] MEDS: Insulin Lispro Flexpen 300 UNIT/3 ML INSULN.PEN SUBCUT SCH ×4 (07:01→20:29)
[2017-04-24] MEDS: TORSEMIDE 20 MG PO SCH (08:31)
[2017-04-24] MEDS: METOPROLOL SUCCINATE 25 MG SR 24H TABLET PO SCH (08:31)
[2017-04-24] MEDS: VENLAFAXINE XR 75 MG CAP PO SCH (08:32)
[2017-04-24] MEDS: ACETAMINOPHEN 325 MG TABLET PO PRN ×2 (09:30→21:10)
--- NOTE | 2017-04-24 11:53 | PTI REPORT ---
Thank you for the referral of Ivory Hoang. She was seen on 04/21/17 for an inpatient evaluation secondary to weakness and right knee pain. SUBJECTIVE: The patient is a 72-year-old female. The patient reports that she lives in a trailer home. The patient reports that she has two walkers that she borrowed from the [facility]; one narrow to fit in her home and a wide one to get around in the community secondary to her size. The patient reports her right knee is very painful and has limited her in a lot of daily activities. The patient lives with her and states she hasn't been very mobile around the community. The patient requires assistance from her and has a gait belt at home. PAST MEDICAL HISTORY: Past medical history can be found in the patient's medical record. OBJECTIVE FINDINGS: General observations: The patient was seen seated in her chair. Transfers: The patient required min assist x2 for sit to stand transfer from her chair with standard walker. The patient required contact guard assist x1 for stand to sit transfer onto the toilet. Ambulation: The patient was able to ambulate with contact guard to min assist x2 with walker and max verbal encouragement approximately 30 feet to the restroom. Activities of daily living: The patient was independent with toileting. Range of motion: Leg mobility was not formally assessed. ASSESSMENT: Problem List: Generalized weakness Decreased strength Decreased functional mobility Pain in her right knee Decreased endurance Short-Term Goals: To be met by discharge from inpatient: Patient will be independent with all transfers. Patient will be able to ambulate 150 feet with least restrictive assistive device. Patient will be able to tolerate 15 minutes of activity. Long-Term Goals: To be met following discharge from inpatient: Patient will benefit by being seen by outpatient physical therapy. TREATMENT PLAN: Patient will be seen B.I.D during the week and one time per day over the weekend as an inpatient for therapeutic exercises, functional activities, gait training, neuromuscular reeducation, range of motion, and modalities as needed as well as possible aquatic therapy. INITIAL TREATMENT: Treatment today consisted of the initial evaluation followed by the patient being transferred to the therapy gym where she received an application of moist heat pack x20 minutes including set up to the right knee for pain control. The patient was instructed in quad sets, heel slides, straight leg raises, hip abduction/adduction, short arc quads, and four way ankle exercises with red theraband x10 repetitions. The patient was instructed in 10 sit to stands with contact guard assist x1 and walker. The patient was transferred back up to her room and left in her chair with chair alarm activated and call light within reach. The patient was issued a bariatric walker and a standard walker; one to be able to fit into her home and the bariatric walker for safety outside of the home due to her size. JUAN ALBERTO
--- NOTE | 2017-04-24 15:05 | OT AM DAY ---
Diagnosis : Weakness/Right Knee Pain AM - Occupational Therapy S: The patient reports she wants a shower this morning. She does report bilateral knee pain of 4/10 on the verbal analog scale (0=no pain, 10=worst pain ). She requested pain medication from her nurse. The patient reports that her knees are feeling somewhat better today. O: The patient completed sit to stand transfer from recliner with minimal assistance at times and requiring extra time due to lower extremity pain and upper and lower extremity weakness. The patient demonstrated the ability to ambulate 15 feet with stand by assistance. She demonstrated the ability to complete toileting task with independence with toilet hygiene. The patient required minimal assistance for the toilet transfer due to low surface. The patient was independent with pants management. The patient was wheeled into the shower room due to reports of fatigue this morning. She then completed seated showering task with long handled shower hose. She demonstrated the ability to wash upper body and hair with set up assistance. She did require minimal assistance to wash her lower legs and feet. The patient demonstrated the ability to dry upper extremities. She required minimal assistance to dry her backside, lower legs, and feet. The patient demonstrated the ability to don gown with set up assistance. She demonstrated the ability to don briefs and shorts with minimal assistance with use of a seam checker to thread the shorts over her feet. The patient was instructed in use of a sock aide and completed the task with minimal assistance to re-situate the sock on her foot. She required minimal verbal cues for use of the sock aide. The patient did require moderate assistance to don her shoes and tie her shoes. Following OT, the patient transitioned to PT. A: The patient did well overall with morning ADL tasks. She tolerated them well; however, she does demonstrate some difficulty with sit to stands, requiring extra time and minimal assistance at times. She continues to benefit from skilled care and gain more independence with lower extremity dressing. P: Continue seeing patient BID during the week and one time per day over the weekend for upper extremity strengthening, ADLs, and overall functional mobility. JUAN ALBERTO
--- NOTE | 2017-04-24 15:27 | PDOC(PROG) ---
Date and Time of Service: 04/24/2017, 1525 Interval History: No chest pain or shortness breath. Knee pain is slightly better. States she is doing well with PT and OT. Diarrhea from yesterday's Kayexalate resolved. Objective : Data - Labs CBC and BMP: 04/20/17 17:10 04/24/17 04:20 Additional Lab Results: Selected Entries 04/22/17 21:00 04/23/17 07:00 04/23/17 11:00 Finger Stick Blood Glucose 170 H 149 H 138 H 04/23/17 16:00 04/23/17 20:15 04/24/17 06:50 Finger Stick Blood Glucose 205 H 248 H 130 H 04/24/17 11:30 Finger Stick Blood Glucose 89 Objective : Exam - General General Appearance: No Acute Distress, Cooperative Additional General Exam Details: Vital Signs - Last Taken Temperature 97.8 F 04/24/17 11:30 Pulse Rate 72 04/24/17 11:30 Respiratory Rate 18 04/24/17 11:30 Blood Pressure 157/68 04/24/17 11:30 Pulse Ox 98 04/24/17 11:30 - Eye Eye Exam: No Scleral Icterus - ENT ENT Exam: Mucous Membranes Moist - Respiratory Respiratory Exam: Clear to Auscultation - Bilaterally, Breathing Non Labored - Cardiovascular Cardiovascular Exam: RRR, No Murmur, No Clicks, No Gallops, No Rubs, No JVD - GI/Abdominal GI/Abdominal Exam: Normal Bowel Sounds, Non Tender, Non Distended, Soft - Extremities Extremities Exam: No Clubbing Present, No Edema Present, No Cyanosis Present - Neurological Neurological Exam: Alert, Oriented x 3, No Facial Droop, Speech Intact / Clear, Moves All Extremities Equally Assessment and Plan - Patient Problems (1) Poorly controlled type 2 diabetes mellitus Current Visit: Yes Status: Acute Code(s): E11.65 - Type 2 diabetes mellitus with hyperglycemia (2) Hyperkalemia Current Visit: Yes Status: Acute Code(s): E87.5 - Hyperkalemia (3) Osteoarthritis of right knee Current Visit: Yes Status: Acute Code(s): M17.11 - Unilateral primary osteoarthritis, right knee Qualifiers: Osteoarthritis type: primary Qualified Code(s): M17.11 - Unilateral primary osteoarthritis, right knee (4) Hypertension Current Visit: Yes Status: Acute Code(s): I10 - Essential (primary) hypertension Qualifiers: Hypertension type: essential hypertension Qualified Code(s): I10 - Essential (primary) hypertension (5) Chronic renal failure Current Visit: Yes Status: Acute Code(s): N18.9 - Chronic kidney disease, unspecified Qualifiers: Chronic kidney disease stage: stage 4 (severe) Qualified Code(s): N18.4 - Chronic kidney disease, stage 4 (severe) (6) Hypothyroidism Current Visit: Yes Status: Chronic Onset Date: 02/04/16 Code(s): E03.9 - Hypothyroidism, unspecified Qualifiers: Hypothyroidism type: acquired Qualified Code(s): E03.9 - Hypothyroidism, unspecified (7) Osteoarthritis of left knee Current Visit: Yes Status: Acute Code(s): M17.12 - Unilateral primary osteoarthritis, left knee Qualifiers: Osteoarthritis type: primary Qualified Code(s): M17.12 - Unilateral primary osteoarthritis, left knee - Assessment / Plan Additional Assessment/Plan Details: In terms of the diabetes, the patient shows a trend that she starts to elevate in terms of her blood sugars through the afternoon and into the evening. She starts out at a fairly low dose in the morning. It may be that we can move the Lantus to the morning dosing to try and cover these sugars at night. I will make arrangements for that. Very reassured that the potassium is now normal and creatinine has not been changed. The patient is no longer a candidate for MARCUS inhibitor therapy. To swing bed tomorrow. Patient still has follow-up with her drink waiter here in [place] on 04/26/2017, I think she should make that appointment. We need to determine whether or not they would want to proceed with getting for potential dialysis with a graft a knee surgeries. Eventual referral to [place] [facility] to evaluate for potential right knee replacement and possibly even left knee replacement later on down the road. As an outpatient, the patient should have stress testing of her heart to risk stratify her prior to any surgery.
--- NOTE | 2017-04-24 16:30 | PT.PROG ---
Progress Note Progress Note: S. Patient stated that she is feeling good this morning. She reports that she is in better spirts than this weekend. O. Patient ambulated 15 feet to the wheelchair and was wheeled to the therapy gym where she performed seated exercises in the form of; Long arc quads, marches , minute drills (2x1 minute) sit to stands, heel toe raises, resisted knee flexion, clam shells, all with 2# and red thera band all x 10. Patient ambulated 30 feet to the wheelchair and was wheeled to her room where she was left in chair with alarm and call light. A. Patient tolerated therapy well this morning, she is very weak however she is motivated to get better, she agreed to go to the pool tomorrow. Patient would continue to benefit from skilled therapy at this time. P. Continue POC.
--- NOTE | 2017-04-24 16:33 | PT.PROG ---
Progress Note Progress Note: S. Patient agreed to go to the therapy gym this afternoon, she reports that she is feeling good and is excited for therapy. O. Patient ambulated 15 feet to the wheelchair and was wheeled to the therapy gym where she performed seated exercises in the form of; Long arc quads, marches , sit to stands, heel toe raises, resisted knee flexion, clam shells, all with 2 # and red thera band all x 10. Patient ambulated 25 feet to the wheelchair and was wheeled back to her room where she was left in chair with alarm and call light. A. Patient tolerated therapy well, she continues to be very weak however was able to perform seated exercises with no complaints, she struggles with weight bearing activities, therefore therapists feels that the pool would be very beneficial for her. Patient would continue to benefit from skilled therapy at this time. P. Continue POC.
--- NOTE | 2017-04-24 17:02 | OT.PROG ---
Progress Note Progress Note: S; pt was in good spirits today. no new complaints. O: pt completed transfer down in w/c today with PT. Pt then completed UE arm bike to increase activity tolerance. she then completed UE exercises in all planes x15 with BUE's to increase strength to assist with postural transitions. After completing PT she was returned to her room . A: pt may continue to benefit from therapy to increase activity tolerance during transfers. She is not very confident of LE strength to completed transfers so strengthening may be beneficial for her. P: continue per POC.
[2017-04-24] MEDS: Insulin Glargine SoloStar Inj 100 UNIT/ML INSULN.PEN SUBCUT SCH (20:33)
[2017-04-24] MEDS: GABAPENTIN 300 MG CAPSULE PO SCH (20:33)
[2017-04-25] MEDS: ACETAMINOPHEN 325 MG TABLET PO PRN (04:26)
[2017-04-25] MEDS: LEVOTHYROXINE 88 MCG TABLET PO SCH (04:32)
[2017-04-25 07:07] VITALS: RESP 20
[2017-04-25] MEDS: Insulin Lispro Flexpen 300 UNIT/3 ML INSULN.PEN SUBCUT SCH ×2 (08:24→12:32)
[2017-04-25] MEDS: TORSEMIDE 20 MG PO SCH (08:27)
[2017-04-25] MEDS: METOPROLOL SUCCINATE 25 MG SR 24H TABLET PO SCH (08:27)
[2017-04-25] MEDS: VENLAFAXINE XR 75 MG CAP PO SCH (08:27)
[2017-04-25] MEDS: traMADol 50 MG TABLET PO PRN (08:33)
--- NOTE | 2017-04-25 11:06 | OTI REPORT ---
Thank you for the referral of Ivory Hoang. She was seen on 04/21/17 for an occupational therapy inpatient evaluation secondary to weakness and right knee pain. SUBJECTIVE: The patient is a 72-year-old female who is being seen secondary to having knee pain. She reports that she is having decreased ability to care for herself. She is having difficulty with dressing herself and completing functional transfers. PAST MEDICAL HISTORY: Past medical history can be found in the patient's medical record. OBJECTIVE FINDINGS: Pain: The patient rated her knee pain as a 7/10 on the verbal analog scale (0= no pain, 10=worst pain). Activities of daily living: The patient was observed trying to dress self and really struggles with this. The patient is a larger woman and needs equipment in order to dress self. She was issued a reliability technicians, a sock aide, a bath sponge, and a long handled shoe horn in order to improve her independence with dressing. The patient was able to demonstrate use of reliability technicians and sock aide with verbal cues and demonstrated use of bath sponge and simulated shoe task with verbal cues. Transfers: The patient requires mod assist to come from sit to stand and requires a lot of assistance to stand and keep her balance at this point in time secondary to knee pain. Range of motion: Upper extremity range of motion is within functional limits. Strength: Strength in the upper extremities is 4/5 for shoulder flexion and 3+/ 5 for shoulder abduction and internal/external rotation. ASSESSMENT: Problem List: Patient requires education on adaptive equipment Decreased ability to perform functional transfers Decreased strength Short-Term Goals: To be met by discharge from inpatient: Patient will increase upper extremity strength to 4+/5. Patient will be able to dress self with use of adaptive equipment with stand by assistance. Patient will be able to complete a toilet transfer independently. Patient will be able to stand at sink x5 minutes to complete hygiene activities independently. Long-Term Goals: To be met following discharge from inpatient: Patient will be discharged home demonstrating independence and safety with all functional activities and ADLs. TREATMENT PLAN: Patient will be seen B.I.D during the week and one time per day over the weekend as an inpatient to address the above goals and objectives. INITIAL TREATMENT: Treatment today consisted of the initial evaluation followed by the patient being issued and instructed in adaptive equipment. The patient attempted dressing tasks with adaptive equipment, sit to stands, and a functional transfer with mod assist. JUAN ALBERTO
[2017-04-25 11:45] VITALS: BP 131/69; TEMP 97.3; O2SAT 93
--- NOTE | 2017-04-25 12:37 | DCSUMMARY ---
Hospitalization Summary Admit Date: 04/20/2017 Discharge Date: 04/25/17 Hospital Course: Discharge diagnoses 1. Bilateral osteoarthritis 2. Hypertension 3. Chronic renal failure 4. Diabetes 5. Hyperkalemia resolved 6. Hypothyroidism Hospital course This is a 72 years old female with medical history significant for history of chronic renal failure, diabetes, hypertension and osteoarthritis who came to the hospital because of right knee pain she's been taking some tramadol and Tylenol for the pain but continued to have the pain especially when she puts weight on it. Because of the uncontrolled pain she was admitted to the hospital by Dr. Dumont please see his note. Patient had the an injection of steroid in the right knee which somewhat helped and she had also pain in the left knee and she had another injection. She did develop hyperkalemia while she was here she was put on Kayexalate and lisinopril that she was on was withheld. Patient continued to be weak so it was decided that probably need few days here on swing bed before she is able to go back home. I saw her on the day of discharge from inpatient status her pain seemed to be controlled but at times gets worse especially when she goes to physical therapy her exam was not remarkable. We decided to switch her status to swing bed and continue physical therapy. I did add some Percocet to see whether that would help her pain in case it is not controlled with the tramadol. She did mention that she had it before. Patient was on glyburide when she was at home but she was switched to insulin including Lantus and Humalog. Discharge instruction Diet regular Medications Active Medications Acetaminophen (Tylenol) 650 mg PO Q6H PRN PRN Reason: Pain or Fever Last Admin: 04/25/17 04:26 Dose: 650 mg Calcium Carbonate (Tums) 1 - 2 tab PO Q6H PRN PRN Reason: Heartburn Last Admin: 04/23/17 23:53 Dose: 2 tab Dextrose (Dextrose 50% Inj) 30 - 40 ml IVP Q15M PRN PRN Reason: BG < 70 unable to take oral Docusate Sodium (Colace) 100 mg PO BID PRN PRN Reason: Constipation Gabapentin (Neurontin) 300 mg PO BEDTIME [facility] Last Admin: 04/24/17 20:33 Dose: 300 mg Glucagon (Glucagen) 1 mg IM ONCE PRN PRN Reason: BG < 70 NPO & NO IV Glucose (Insta-Glucose Gel) 15 - 20 gm PO Q15M PRN PRN Reason: BG < 70 Insulin Glargine (Lantus Solostar Inj) 5 unit SUBCUT BEDTIME [facility] Last Admin: 04/24/17 20:33 Dose: 5 unit Insulin Human Lispro (Humalog Flexpen Inj) 0 - 14 unit SUBCUT AC HS [facility] PRN Reason: Protocol Last Admin: 04/25/17 12:32 Dose: Not Given Levothyroxine Sodium (Synthroid) 88 mcg PO DAILY@0530 [facility] Last Admin: 04/25/17 04:32 Dose: 88 mcg Lidocaine HCl (Lidocaine Buffered Inj) 0.5 ml SUBD ONCE PRN PRN Reason: IV Starts Metoprolol Succinate (Toprol Xl) 25 mg PO DAILY [facility] Last Admin: 04/25/17 08:27 Dose: 25 mg Non-Formulary Medication (Torsemide [Torsemide]) 20 mg PO DAILY [facility] Last Admin: 04/25/17 08:27 Dose: 20 mg Ondansetron HCl (Zofran Inj) 4 mg IVP Q4H PRN PRN Reason: NAUSEA / VOMITING Sodium Chloride (Saline Flush) 5 - 20 ml IVP BID PRN PRN Reason: Flush Tramadol HCl (Ultram) 50 mg PO Q4H PRN PRN Reason: Pain Last Admin: 04/25/17 08:33 Dose: 50 mg Venlafaxine HCl (Effexor Xr) 150 mg PO DAILY [facility] Last Admin: 04/25/17 08:27 Dose: 150 mg Follow-up patient status will be switched to swing bed status to continue physical therapy Exam - Vitals Vital Signs: Vital Signs Temperature 97.3 F Temperature Source Temporal Artery Scan Pulse Rate [Apical] 70 Pulse Rate [Pulse Oximeter] 76 Pulse Rate 113 Respiratory Rate 20 Blood Pressure [Left Radial 131/69 Artery] Blood Pressure [Left Arm] 134/73 Pulse Ox 93 Oxygen Flow Rate 6 Oxygen Delivery Method Room Air Weight 265 lb - General General Appearance: No Acute Distress, Cooperative, Obese - Head Head Exam: Normal Inspection, Atraumatic - Eye Eye Exam: POSITIVE: Normal Appearance - ENT ENT Exam: POSITIVE: Normal Exam - Neck Neck Exam: Normal Inspection - Respiratory Respiratory Exam: POSITIVE: Clear to Auscultation - Bilaterally - Cardiovascular Cardiovascular Exam: POSITIVE: RRR - GI/Abdominal GI/Abdominal Exam: POSITIVE: Normal Bowel Sounds, Non Tender, Non Distended, Soft, No Organomegaly - Rectal Rectal Exam: POSITIVE: Deferred - External Exam: POSITIVE: Deferred - Extremities Extremities Exam: POSITIVE: Normal Inspection - Back Back Exam: POSITIVE: Normal Inspection - Neurological Neurological Exam: POSITIVE: Alert, Oriented x 3, CN II-XII Intact, Moves All Extremities Equally - Psychiatric Psychiatric Exam: POSITIVE: Normal Affect
--- NOTE | 2017-04-25 13:23 | PT.PROG ---
Progress Note Progress Note: S. Patient stated that she would really like to try the pool this morning. O. Patient ambulated 15 feet to the wheelchair and was wheeled to the pool where she transferred into the hydraulic lift chair and lowered into the pool then performed 30 minutes of aquatic therapy. Then was left with OT for further therapy. A. Patient required assistance with ambulation in the pool, she was struggling with side stepping to the left and while bicycling her right knee was causing more pain. She continues to struggle with sit to stand transfers on land and would continue to benefit from skilled therapy at this time. P. Continue POC.
--- NOTE | 2017-04-27 11:56 | OT AM DAY ---
Diagnosis : Weakness/Right Knee Pain AM - Occupational Therapy S: The patient rates her knee pain as a 7/10 on the verbal analog scale (0= no pain, 10=worst pain). O: Today the patient worked on showering task. The patient transferred from the pool to the shower. She ambulated with mod assist; it took her a lot of time to ambulate approximately 20 feet to get to the shower chair. Once the patient reached the shower chair, we instructed her to be as independent as possible. The patient was able to shower self minus her feet and back. The patient required mod assist to use funding specialist and sock aide when completing dressing tasks. The patient was able to dress her upper extremities independently after set up. The patient was then taken to her room where she transferred to the chair with min assist. A: The patient has increased bilateral knee pain. It takes her increased time to complete tasks and her balance is compromised secondary to her knee pain. P: Continue seeing patient BID during the week and one time per day over the weekend for upper extremity strengthening, ADLs, and overall functional mobility. JUAN ALBERTO
== END 2017-04-25 12:37 | disposition home or self-care (01) | DRG 554 ==
LOC: MED/SURG 16:25 → ER 16:25
PROVIDERS: ADMIT Family Medicine; ATTEND Family Medicine

== ENCOUNTER 2017-12-29 11:10 | Inpatient (IN) ==
[2017-12-29] MEDS ORDERED: ASPIRIN 81 MG (BABY) CHEWABLE TABLET PO ONE (11:27)
[2017-12-29] MEDS ORDERED: Sodium Chloride 0.9% 1,000 ML PRIMARY IV ONE (11:27)
[2017-12-29] MEDS ORDERED: DILTIAZEM 5 MG/ML - 5 ML IV ONE ×2 (11:28→11:47)
--- NOTE | 2017-12-29 11:29 | EKG ---
Measurements Intervals [place] Rate: 183 P: CT: 0 QRS: 48 QRSD: 93 T: 83 QT: 225 QTc: 321 Interpretive Statements ATRIAL FIBRILLATION WITH RAPID VENTRICULAR RESPONSE MODERATE ST DEPRESSION [0.05+ mV ST DEPRESSION] Compared to ECG 10/23/2017 10:36:44 ST (T wave) deviation now present Sinus rhythm no longer present Electronically Signed On 12-29-17 12:22:08 MDT by Guero Hill [id number]
[2017-12-29] MEDS ORDERED: Diltiazem Drip 125 MG in Sodium Chloride 0.9% 100 ML IV ONE (11:49)
[2017-12-29 12:04] LABS: BUN/CREATININE RATIO 14.84 (6-20); SERUM ALBUMIN 4.7 g/dL (3.5-4.8)
[2017-12-29 12:06] LABS: BASOPHILS # (AUTO) 0.05 10*3/UL; BASOPHILS % (AUTO) 0.4 % (0-1); EOSINOPHILS # (AUTO) 0.37 10*3/UL; EOSINOPHILS % (AUTO) 3.3 % (0-8); Hemoglobin [HGB] 10.7 g/dL (12.0-16.0); LYMPHOCYTES # (AUTO) 2.85 10*3/uL; MEAN CORPUSCULAR HEMOGLOBIN 32.2 PG (27-31); MEAN CORPUSCULAR HGB CONC 31.5 g/dL (33-37); MEAN CORPUSCULAR VOLUME 102.4 FL (81-99); MEAN PLATELET VOLUME 10.1 FL (7.4-12.2); MONOCYTES # (AUTO) 0.79 10*3/UL (0.3-0.8); NEUTROPHILS # (AUTO) 7.27 10*3/UL; NEUTROPHILS % (AUTO) 63.9 % (50-80); RED BLOOD COUNT 3.32 10^6/uL (4.20-5.40)
[2017-12-29 12:09] LABS: PLATELET MORPHOLOGY COMMENT NORMAL MORPHOLOGY (NORM); RBC MORPHOLOGY COMMENT NORMAL MORPHOLOGY (NORM); WBC MORPHOLOGY COMMENT NORMAL MORPHOLOGY (NORM)
--- NOTE | 2017-12-29 12:10 | DI ---
XR CXR 1VW 12/29/2017 11:27 AM HISTORY: Chest Pain Comparison: Chest x-ray 12/15/2016. Findings: A single portable frontal view of the chest is submitted. Images demonstrate mildly increased interstitial markings without dense consolidation. There is no la rge pneumothorax or pleural effusion. The cardiomediastinal silhouette is at the upper limits of norm al. The osseous structures are not significantly changed. Impression: 1. There is no pneumothorax, pleural effusion, or area of dense consolidation. 2. Heart size is at the upper limits of normal with increased interstitial lung markings. This could represent technique versus early pulmonary edema in the setting of heart failure.
--- NOTE | 2017-12-29 13:18 | EKG ---
[address] [address] Measurements Intervals [place] Rate: 81 P: 40 NH: 165 QRS: 59 QRSD: 95 T: 76 QT: 385 QTc: 423 Interpretive Statements SINUS RHYTHM WITH SINUS ARRHYTHMIA Compared to ECG 12/29/2017 11:15:02 Atrial fibrillation no longer present ST (T wave) deviation no longer present Electronically Signed On 12-29-17 15:36:45 MDT by Guero Hill [id number]
--- NOTE | 2017-12-29 13:46 | PDOC ---
HPI - History of Present Illness History of Present Illness: This very nice 72-year-old female with past medical history of chronic kidney disease already has a shunt in place for possible dialysis was sent over from the [facility] to the ER for chest pain. This resolved even before getting to the emergency room and was found to have A. fib with RVR and was started on a Cardizem drip. Patient has no complaints of chest pain nausea vomiting at present time and is admitted to the ICU Past Medical History Medical History: 1. End-stage renal disease, stage IV to stage V. 2. Hypertension. 3. Hypercholesterolemia. 4. Diabetes mellitus type II. 5. Anemia of end-stage renal disease. 6. Per my review of the medical record, carcinoid tumor of the lung. Surgical History: 1. Cholecystectomy. 2. Appendectomy. 3. Umbilical hernia repair and multiple surgeries related to small bowel obstructions since subsequently. Pertinent Family History: No history of kidney disease in the family. Past Social History: Patient is been 3 times. Is been her current for over 24 years. 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 She had 4 children, but one of her sons due to [place]'s choria. She has a daughter with [place]'s choria Tobacco Use: Never Smoker In the Past 12 Months, Have Used or Abuse Any of the Following Substance: None Medication / Allergies Home Medications: Home Medications 3 Medication Instructions Recorded Confirmed Type Blood Sugar Diagnostic [Assure 0 ea .ROUTE .MEDSUPPLY 04/20/17 12/29/17 History Prism Multi] oxycodone-acetaminophen 5 mg-325 1 tab PO Q6H PRN #120 tab 05/08/17 12/29/17 Rx mg tablet levothyroxine 88 mcg capsule 88 mcg PO ONCE #10 cap 06/09/17 12/29/17 Rx metoprolol succinate ER 25 mg 25 mg PO QDAY #90 tab 06/09/17 12/29/17 Rx tablet,extended release 24 hr torsemide 20 mg tablet 20 mg PO QDAY #10 tab 06/09/17 12/29/17 Rx venlafaxine ER 150 mg 150 mg PO QAM #10 cap 06/09/17 12/29/17 Rx capsule,extended release 24 hr calcium carbonate 200 mg calcium 200 mg PO TID tab 10/05/17 12/29/17 History (500 mg) chewable tablet cyanocobalamin (vit B-12) 1,000 1,000 mcg IM QWEEK ea 10/05/17 12/29/17 History mcg/mL injection kit folic acid 1 mg tablet 1 mg PO QDAY 10/05/17 12/29/17 History melatonin 3 mg tablet 6 mg PO QHS tab 10/05/17 12/29/17 History sodium bicarbonate-sodium chloride 30 ea MISCELLANEOUS PRN 10/05/17 12/29/17 History powder calcium carbonate 200 mg calcium 200 mg PO TID tab 12/04/17 12/29/17 History (500 mg) chewable tablet cholecalciferol (vitamin D3) 50,000 unit PO QWEEK cap 12/04/17 12/29/17 History 50,000 unit capsule lidocaine 4 % topical patch 1 patch TOPICAL BID PRN 12/04/17 12/29/17 History Allergies/Adverse Reactions: Allergies 3 Allergy/AdvReac Type Severity Reaction Status Date / Time Penicillins AdvReac Severe SWELLING Verified 12/29/17 13:53 Syrtugl-Fdi-Ujj Reductase AdvReac Mild SWELLING Verified 12/29/17 13:53 Inhibitor msg AdvReac Intermediate SWELLING Uncoded 12/29/17 13:53 Review of Systems - Review of Systems All Systems: Reviewed & No Additional Complaints Except as Stated - Cardiovascular Cardiovascular: REPORTS: Chest Pain - Gastrointestinal Gastrointestinal / Abdominal: REPORTS: Negative System Review. DENIES: Nausea, Vomiting, Diarrhea, Constipation, Abdominal Pain, Bloody Stool, Poor Appetite, Heartburn, Regurgitation, Bloating, Lactose Intolerance, Melena, Bright Red Blood per Rectum, Other, See HPI - Genitourinary Genitourinary: DENIES: Negative System Review, Pain, Burning, Hematuria, Incontinence, Urgency, Hesitant Stream, Decreased Stream, Nocutria, Discharge, Sexual Dysfunction, Other, See HPI Exam - Vitals Vital Signs: Vital Signs Temperature 98.1 F Temperature Source Temporal Artery Scan Pulse Rate [Pulse Oximeter] 166 Pulse Rate 110 Respiratory Rate 15 Blood Pressure [Left Arm] 155/77 Pulse Ox 95 Oxygen Delivery Method Room Air Height 5 ft 3 in Weight 292 lb 8 oz - General General Appearance: No Acute Distress, Cooperative - Head Head Exam: Normal Inspection, Normocephalic, Atraumatic - Eye Eye Exam: POSITIVE: Normal Appearance, PERRL, EOMI, No Scleral Icterus - Respiratory Respiratory Exam: POSITIVE: Clear to Auscultation - Bilaterally, Breathing Non Labored, Normal To Percussion, Normal to Percussion and Palpation - Cardiovascular Cardiovascular Exam: POSITIVE: No Murmur, No Gallops, +S1, +S2. NEGATIVE: JVD Additional Cardiovascular Details: Irregularly irregular - GI/Abdominal GI/Abdominal Exam: POSITIVE: Normal Bowel Sounds, Non Tender, Non Distended, Soft, No Masses, No Hepatomegaly, No Splenomegaly, No Organomegaly - Extremities Extremities Exam: POSITIVE: No Clubbing Present, No Edema Present - Neurological Neurological Exam: POSITIVE: Alert, Oriented x 3, No Facial Droop, Speech Intact / Clear, Moves All Extremities Equally - Psychiatric Psychiatric Exam: POSITIVE: Normal Affect, Normal Mood - Integumentary Integumentary Exam: POSITIVE: Warm, Intact. NEGATIVE: Normal Color Results - Labs CBC and BMP: 12/29/17 11:40 12/29/17 11:40 Assessment and Plan - Patient Problems (1) Atrial fibrillation with RVR Current Visit: Yes Status: Acute Comment: Cardizem drip, continue anticoagulation consult eICU Code(s): I48.91 - Unspecified atrial fibrillation (2) Chronic renal failure Current Visit: No Status: Acute Comment: We will repeat labs in a.m. this might be her baseline for her Code(s): N18.9 - Chronic kidney disease, unspecified Qualifiers: (3) Hyperkalemia Current Visit: No Status: Acute Comment: 5.5 normal interventions at this time Code(s): E87.5 - Hyperkalemia (4) Hypertension Current Visit: No Status: Acute Comment: Stable on Cardizem drip Code(s): I10 - Essential (primary) hypertension Qualifiers: (5) Hypothyroidism Current Visit: No Status: Chronic Onset Date: 02/04/16 Comment: On replacement Code(s): E03.9 - Hypothyroidism, unspecified Qualifiers: (6) Type 2 diabetes mellitus with diabetic neuropathy, without long-term current use of insulin Current Visit: No Status: Chronic Onset Date: 10/17/16 Code(s): E11.40 - Type 2 diabetes mellitus with diabetic neuropathy, unspecified
[2017-12-29] MEDS ORDERED: Multivitamin Tab 1 TAB PO ONE (14:46)
[2017-12-29] MEDS ORDERED: Influenza 18-19 Vaccine (6mo+) 60 MCG/0.5 ML SYRINGE IM ONE (14:52)
[2017-12-29] MEDS ORDERED: LIDOCAINE TOPICAL PRN (14:56)
[2017-12-29] MEDS ORDERED: VITAMIN D3 50000 UNIT PO SCH (14:56)
[2017-12-29] MEDS ORDERED: LIDOCAINE HCL 2 % 10 ML JELLY URO-JECT TOPICAL PRN (14:56)
[2017-12-29] MEDS ORDERED: LIDOCAINE W/ SODIUM BICARB 0.5 ML SYR SUBD PRN (14:56)
[2017-12-29] MEDS ORDERED: oxyCODONE-ACETAMINOPHEN 5-325 TAB PO PRN (14:56)
[2017-12-29] MEDS ORDERED: Apixaban Tab 2.5 MG TABLET PO SCH (14:56)
[2017-12-29] MEDS ORDERED: ASCORBIC ACID Chewable 500 MG TABLET PO ONE (14:56)
[2017-12-29] MEDS ORDERED: LIDOCAINE 700 MG PATCH TOPICAL PRN (14:56)
[2017-12-29] MEDS ORDERED: METOPROLOL SUCCINATE 25 MG SR 24H TABLET PO SCH (14:56)
[2017-12-29] MEDS ORDERED: Sodium Chloride 0.9% 1,000 ML with Multivitamin Inj 10 ML, Thiamine Inj 100 MG, Folic A... IV ONE ×5 (15:00)
[2017-12-29] MEDS ORDERED: CALCIUM CARBONATE 500 MG (TUMS) CHEWABLE TABLET PO SCH ×2 (15:00)
[2017-12-29] MEDS: Metoprolol TARTRATE Tab 50 MG TAB PO SCH ×2 (16:13→20:38)
[2017-12-29] MEDS: CALCIUM CARBONATE 500 MG (TUMS) CHEWABLE TABLET PO SCH ×2 (17:50→20:44)
[2017-12-29] MEDS: Apixaban 5 MG TABLET PO SCH (20:39)
[2017-12-29] MEDS ORDERED: MELATONIN 5 MG TABLET PO SCH (21:00)
[2017-12-30] MEDS ORDERED: Metoprolol TARTRATE Tab 50 MG TAB PO ONE (00:55)
--- NOTE | 2017-12-30 03:38 | PDOC ---
Chest Pain HPI - General Chief Complaint: Chest Pain Stated Complaint: chest pain Date Seen by Provider: 12/29/17 Time Seen by Provider: 11:15 Source: Patient, RN/MD, EMS Exam Limitations: POSITIVE: No limitations Treatment Prior to Arrival: REPORTS: Oxygen, Aspirin Nurse's Notes Reviewed & Considered: Yes EMS Report Reviewed & Considered: Verbal - History of Present Illness Initial Comments: The patient is a 72-year-old female who is a resident of [facility]. She is brought to the emergency room by ambulance. 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 She also had a sensation of shortness of breath. She was given 4 baby aspirin by the [facility] at the [facility] and was then sent the emergency room. Patient has a history of type II diabetes mellitus. She also, according to her medical records, has a history of chronic renal failure, benign carcinoid tumor of the bronchus and lung, hypothyroidism, hypertension and obesity. Body Location Affected: REPORTS: Chest Timing: REPORTS: Abrupt, Improved Duration: 1 hour Severity: Moderate Persistent/Worse since (date): 12/29/17 Persistent/Worse since (time): 10:15 Context: REPORTS: Activity (Visiting with residence of the [facility]) Quality: REPORTS: Burning, "Pain" Radiation: REPORTS: Neck (R), Neck (L), Shoulder (R), Shoulder (L) Associated Symptoms: REPORTS: Shortness of Breath. DENIES: Nausea, Vomiting, Diaphoresis, Hurts to Breathe, Palpitations, Productive Cough (blood), Productive Cough (sputum), Weakness, Dizziness Modifying Factors: improves with: None Reported Similar Symptoms Previously: No Recently seen/treated/hospitalized: No Any Prior Injuries Related to Current Complaint?: No - Patient Home Medications Home Medications: Home Medications Blood Sugar Diagnostic [Assure Prism Multi] 0 ea .ROUTE .MEDSUPPLY 04/20/17 oxycodone-acetaminophen 5 mg-325 mg tablet 1 tab PO Q6H PRN #120 tab 05/08/17 levothyroxine 88 mcg capsule 88 mcg PO ONCE #10 cap 06/09/17 metoprolol succinate ER 25 mg tablet,extended release 24 hr 25 mg PO QDAY #90 tab 06/09/17 torsemide 20 mg tablet 20 mg PO QDAY #10 tab 06/09/17 venlafaxine ER 150 mg capsule,extended release 24 hr 150 mg PO QAM #10 cap 06/09 calcium carbonate 200 mg calcium (500 mg) chewable tablet 200 mg PO TID tab cyanocobalamin (vit B-12) 1,000 mcg/mL injection kit 1,000 mcg IM QWEEK ea folic acid 1 mg tablet 1 mg PO QDAY 10/05/17 melatonin 3 mg tablet 6 mg PO QHS tab 10/05/17 sodium bicarbonate-sodium chloride powder 30 ea MISCELLANEOUS PRN 10/05/17 cholecalciferol (vitamin D3) 50,000 unit capsule 50,000 unit PO QWEEK cap 12/04 lidocaine 4 % topical patch 1 patch TOPICAL BID PRN 12/04/17 - Patient Allergies Allergies/Adverse Reactions: Allergies 3 Allergy/AdvReac Type Severity Reaction Status Date / Time Penicillins AdvReac Severe SWELLING Verified 12/29/17 13:53 [id number]-[id number] Reductase AdvReac Mild SWELLING Verified 12/29/17 13:53 Inhibitor msg AdvReac Intermediate SWELLING Uncoded 12/29/17 13:53 Past Medical History - heen HEENT History: Denies History Cardiovascular History: Hypertension Respiratory History: Home CPAP Use, Other (please comment) Additional Respiratory History: 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 TOLD SHE'D OUT LIVE THEM SO DIDN'T NEED REMOVED Gastrointestinal History: Small Bowel Obstruction Additional Gastrointestinal History: X5 OR 6. MESH SCREENS PLACED TO SUPPORT BOWEL Genitourinary History: Denies History Endocrine History: Type 2 Diabetes (oral), Hypothyroidism Musculoskeletal History: Gout, Joint Pain Prosthesis or Implant: No Additional Musculoskeletal History: BAD KNEES. NEUROPATHY IN FEET Neurological History: Denies History Blood Disorders: Denies History Psychiatric History: Depression History of Sexually Transmitted Diseases: No Female Reproductive History: Hysterectomy Obstetrical History: Denies History Cancer History: Lung Cancer Treatment / Date(s) of Treatment: TOLD SHE WOULD OUT LIVE THEM In Past Year Been Physically Harmed or Verbally Threatened: No History of MDRO: Yes Type of MDRO: Unknown History of Other Communicable Diseases: No Tobacco Use: Never Smoker In the Past 12 Months, Have Used or Abuse Any Substance: None Previous Surgical History: Yes Type / Date of Surgery: APPY AGE 5, T&A AGE 7. SCREENS IN SMALL BOWEL. Anesthesia Reactions: No Significant Family History: No pertinent family hx Past Medical History Reviewed: Reviewed - No Changes ROS - Limitations ROS Limitations: No Limitations Constitution: REPORTS: Denies Symptoms Cardiovascular: REPORTS: Chest Pain Respiratory: REPORTS: Shortness Of Breath Neurological: REPORTS: Denies Neuro Symptoms Gastrointestinal: REPORTS: Denies GI Symptoms Endocrine: REPORTS: Denies Symptoms Musculoskeletal: REPORTS: Denies MS Symptoms Genitourinary: REPORTS: Denies Symptoms Eyes: REPORTS: Denies Symptoms ENT: REPORTS: Denies Symptoms Skin: REPORTS: Denies Skin Symptoms Lympathic: REPORTS: Denies Lympathic Symptoms Immunologic: POSITIVE: Denies Symptoms Psychiatric: POSITIVE: Denies Psych Symptoms Chest Pain PE - General Appearance General Appearance: REPORTS: Alert, Cooperative, No Acute Distress, No Evidence of Trauma - HEENT HEENT: POSITIVE: Head Inspection Nml, Eyes Inspection Nml, Ears Inspection Nml, Nose Inspection Nml, Oral/Dental Inspect. Nml, Pharynx Inspect. Nml, PERRL, EOMI - Neck Neck: REPORTS: Normal Inspection, No Carotid Bruit - Respiratory Respiratory: REPORTS: No Respiratory Distress, Breath Sounds Normal, Chest Non- Tender - Cardiovascular Cardiovascular: REPORTS: Heart Sounds Normal, Equal Pulses, Strong Pulses, No Murmur, No Gallop, No Friction Rub, No JVD. DENIES: Regular Rate and Rhythm ( Atrial fibrillation with rapid ventricular response of 180), Irregularly Irreg Rhythm, Tachycardia, Bradycardia, Occasional Extrasystoles, Frequent Extrasystoles, JVD Present, S3 Gallop, S4 Gallop, Murmur, Friction Rub, Lucille' s Crunch Peripheral Pulses: Radial (R): 2+, Radial (L): 2+ - Abdomen Abdomen: Soft: (All Quadrants), Normal Bowel Sounds: (All Quadrants), Denies Tenderness: (All Quadrants), No Splenomegaly: (All Quadrants), No Hepatomegaly: (All Quadrants), No Guarding: (All Quadrants), No Rebound: (All Quadrants), No Palpable Pulse: (All Quadrants), No Palpabale Mass: (All Quadrants), No Distention: (All Quadrants), No Rigidity: (All Quadrants) - Skin Skin: REPORTS: Intact, Normal For Race, Warm, Dry, No Rash - Extremities Extremity: Non-Tender: (All Extremities), Normal ROM: (All Extremities), Normal Inspection: (All Extremities) - Neurological / Psychological Neurological: POSITIVE: Affect Apporpriate, 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, 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 Tested, Motor Normal, Sensation Normal Images - Complete Complete: 1 - Chest pain Chest Pain Progress - Results Reviewed by me Xrays/CTs/US Reviewed by me: Yes Discussed with Radiologist: Yes Radiology Findings: Borderline cardiomegaly with some increased interstitial markings Lab Results Reviewed by Me: Yes (troponin less than 0.012; BNP 1390) CBC and BMP: 12/29/17 11:40 12/29/17 11:40 Lab Results:: Laboratory Results 3 12/29/17 12/29/17 12/29/17 11:07 11:07 11:07 WBC RBC Hgb Hct MCV MCH MCHC RDW Std Deviation RDW Coeff of Miranda Plt Count MPV Immature Gran % (Auto) Neut % (Auto) Lymph % (Auto) [place] % (Auto) Eos % (Auto) Baso % (Auto) Immature Gran # (Auto) Neut # (Auto) Lymph # (Auto) [place] # (Auto) Eos # (Auto) Baso # (Auto) WBC Morphology Comment Plt Morphology Comment RBC Morph Comment D-Dimer Sodium Potassium Chloride Carbon Dioxide Anion Gap BUN Creatinine Estimated GFR BUN/Creatinine Ratio Glucose Calculated Osmolality Calcium Magnesium 2.3 Total Bilirubin AST ALT Alkaline Phosphatase CK-MB (CK-2) Troponin I NT-Pro-B Natriuret Pep 1390 H Total Protein Albumin Globulin Albumin/Globulin Ratio TSH 4.11 3 12/29/17 12/29/17 12/29/17 11:40 11:40 11:40 WBC 11.36 H RBC 3.32 L Hgb 10.7 L Hct 34.0 L MCV 102.4 H MCH 32.2 H MCHC 31.5 L RDW Std Deviation 56.6 H RDW Coeff of Miranda 15.7 H Plt Count 273 MPV 10.1 Immature Gran % (Auto) 0.3 Neut % (Auto) 63.9 Lymph % (Auto) 25.1 [place] % (Auto) 7.0 Eos % (Auto) 3.3 Baso % (Auto) 0.4 Immature Gran # (Auto) 0.03 Neut # (Auto) 7.27 Lymph # (Auto) 2.85 [place] # (Auto) 0.79 Eos # (Auto) 0.37 Baso # (Auto) 0.05 WBC Morphology Comment Normal morphology Plt Morphology Comment Normal morphology RBC Morph Comment Normal morphology D-Dimer 0.81 H Sodium 139 Potassium 5.5 H Chloride 106 Carbon Dioxide 18 L Anion Gap 15 BUN 49 H Creatinine 3.3 H Estimated GFR 14 BUN/Creatinine Ratio 14.84 Glucose 199 H Calculated Osmolality 306.0 H Calcium 10.8 H Magnesium Total Bilirubin 0.4 AST 29 ALT 25 Alkaline Phosphatase 131 H CK-MB (CK-2) Troponin I NT-Pro-B Natriuret Pep Total Protein 8.5 H Albumin 4.7 Globulin 3.8 Albumin/Globulin Ratio 1.20 L TSH 3 12/29/17 11:40 WBC RBC Hgb Hct MCV MCH MCHC RDW Std Deviation RDW Coeff of Miranda Plt Count MPV Immature Gran % (Auto) Neut % (Auto) Lymph % (Auto) [place] % (Auto) Eos % (Auto) Baso % (Auto) Immature Gran # (Auto) Neut # (Auto) Lymph # (Auto) [place] # (Auto) Eos # (Auto) Baso # (Auto) WBC Morphology Comment Plt Morphology Comment RBC Morph Comment D-Dimer Sodium Potassium Chloride Carbon Dioxide Anion Gap BUN Creatinine Estimated GFR BUN/Creatinine Ratio Glucose Calculated Osmolality Calcium Magnesium Total Bilirubin AST ALT Alkaline Phosphatase CK-MB (CK-2) 1.09 Troponin I < 0.012 NT-Pro-B Natriuret Pep Total Protein Albumin Globulin Albumin/Globulin Ratio TSH EKG Interpreted/Reviewed By Me:: Yes (atrial fibrillation with rapid ventricular response) EKG Interpretation:: POSITIVE: Normal Intervals, Normal [place], Normal QRS, Normal ST/T, Abnormal EKG (Atrial fibrillation with rapid ventricular response of 183/m), Repeat EKG (Repeat electrocardiogram at 1115, after treatment with diltiazem shows normal sinus rhythm at 81/m.). NEGATIVE: Normal Sinus Rhythm, Normal Rate - Patient's Progress Pain Medication Addressed: POSITIVE: Not Applicable (Discomfort resolved with slowing of heart rate) School/Work Release Addressed: POSITIVE: Not Applicable Re-Examine Time: 13:15 Re-Examine Comment: Patient given diltiazem, 0.25 mg/kg gram by IV bolus with slowing of the heart rate to around 140. Patient then given another bolus at 0.35 mg/kg followed by a constant infusion of 10 mg per hour. Repeat electrocardiogram shows conversion to normal sinus rhythm with ventricular response of 81/m. Patient becomes asymptomatic with slowing of her heart rate. BUN 49 and creatinine 3.3; this is essentially what her renal functions have been since 2017, according to review old records. Status: POSITIVE: Improved, Re-Examined Quality Measure Initiative: CP/AMI: POSITIVE: EKG, ASA - Consult Consult (If Yes, Name of Consulting MD & Time Called): Yes (Dr. Ladd, [id number]) Consulting MD will see pt:: POSITIVE: [facility] [place] Admit Counseled: POSITIVE: Patient, Family (), RE: Lab Results, RE: Radiology Results, RE: DX, RE: Need for F/U Patient Care Time - Estimated PCT Patient Care Time (In Minutes): 60 Vital Signs - VS Reviewed Vital Signs Reviewed: Yes Discharge Clinical Impression: Chest pain, Atrial fibrillation, Congestive heart failure Discharge Disposition: Admit to Inpatient Condition: Fair Date Decision to Admit to Inpatient: 12/29/17 Time Decision to Admit to Inpatient: 13:30
[2017-12-30] MEDS ORDERED: LEVOTHYROXINE 88 MCG TABLET PO SCH (05:30)
[2017-12-30 05:38] LABS: BASOPHILS # (AUTO) 0.04 10*3/UL; BASOPHILS % (AUTO) 0.4 % (0-1); EOSINOPHILS % (AUTO) 4.3 % (0-8); Hematocrit [HCT] 28.6 % (37.0-47.0); Hemoglobin [HGB] 8.7 g/dL (12.0-16.0); LYMPHOCYTES # (AUTO) 1.79 10*3/uL; MEAN CORPUSCULAR HEMOGLOBIN 31.5 PG (27-31); MEAN CORPUSCULAR HGB CONC 30.4 g/dL (33-37); MEAN CORPUSCULAR VOLUME 103.6 FL (81-99); MEAN PLATELET VOLUME 9.8 FL (7.4-12.2); MONOCYTES # (AUTO) 0.65 10*3/UL (0.3-0.8); MONOCYTES % (AUTO) 6.9 % (5-15); NEUTROPHILS # (AUTO) 6.49 10*3/UL; NEUTROPHILS % (AUTO) 69.1 % (50-80); RED BLOOD COUNT 2.76 10^6/uL (4.20-5.40)
[2017-12-30 05:42] LABS: PLATELET MORPHOLOGY COMMENT NORMAL MORPHOLOGY (NORM); RBC MORPHOLOGY COMMENT NORMAL MORPHOLOGY (NORM); WBC MORPHOLOGY COMMENT NORMAL MORPHOLOGY (NORM)
[2017-12-30 05:56] LABS: BUN/CREATININE RATIO 14.83 (6-20); SERUM ALBUMIN 3.6 g/dL (3.5-4.8)
[2017-12-30] MEDS ORDERED: FUROSEMIDE 40 MG TABLET PO SCH (07:00)
[2017-12-30] MEDS: CALCIUM CARBONATE 500 MG (TUMS) CHEWABLE TABLET PO SCH (08:17)
[2017-12-30] MEDS: Apixaban 5 MG TABLET PO SCH (08:17)
[2017-12-30] MEDS: Metoprolol TARTRATE Tab 50 MG TAB PO SCH (08:17)
[2017-12-30] MEDS ORDERED: VENLAFAXINE XR 75 MG CAP PO SCH (09:00)
--- NOTE | 2017-12-30 09:16 | EKG ---
[address] [address] Measurements Intervals [place] Rate: 80 P: 55 SC: 140 QRS: 22 QRSD: 98 T: 79 QT: 387 QTc: 423 Interpretive Statements SINUS RHYTHM Compared to ECG 12/29/2017 13:17:26 Sinus arrhythmia no longer present Electronically Signed On 12-30-17 12:21:01 MDT by Guero Hill [email or web address]
[2017-12-30] MEDS ORDERED: oxyCODONE-ACETAMINOPHEN 5-325 TAB PO PRN (09:27)
--- NOTE | 2017-12-30 11:48 | DCSUMMARY ---
Hospitalization Summary Hospital Course: Final Discharge Diagnosis: Current Visit Problems Problem Status Onset Code Atrial fibrillation with RVR Acute I48.91 Chest pain Acute R07.9 Atrial fibrillation Acute I48.91 Congestive heart failure Acute I50.9 Diagnostic Data, Laboratory Data, and Procedures of Signifigance: Laboratory Results 12/29/17 12/29/17 12/29/17 Range/Units 11:07 11:07 11:07 WBC (4.8-10.8) 10^3/uL RBC (4.20-5.40) 10^6/uL Hgb (12.0-16.0) g/dL Hct (37.0-47.0) % MCV (81-99) FL MCH (27-31) PG MCHC (33-37) g/dL RDW Std Deviation (39-50) fL RDW Coeff of Miranda (11.5-14.5) % Plt Count (140-350) 10*3/uL MPV (7.4-12.2) FL Immature Gran % (Auto) (0-5) % Neut % (Auto) (50-80) % Lymph % (Auto) (10-50) % Bandera % (Auto) (5-15) % Eos % (Auto) (0-8) % Baso % (Auto) (0-1) % Immature Gran # (Auto) 10*3/UL Neut # (Auto) 10*3/UL Lymph # (Auto) 10*3/uL Bandera # (Auto) (0.3-0.8) 10*3/UL Eos # (Auto) 10*3/UL Baso # (Auto) 10*3/UL WBC Morphology Comment (NORM) Plt Morphology Comment (NORM) RBC Morph Comment (NORM) PT (9.7-11.4) secs INR (0.00-5.90) N/A D-Dimer (0.00-0.59) mg/L Sodium (135-145) meq/L Potassium (3.8-5.2) meq/L Chloride (98-112) meq/L Carbon Dioxide (23-33) meq/L Anion Gap (5-20) BUN (7-22) mg/dL Creatinine (0.50-1.20) mg/dL Estimated GFR (>60 ml/min/1.73m(2)) BUN/Creatinine Ratio (6-20) Glucose (78-110) mg/dL Calculated Osmolality (267-292) mOsm/kg Calcium (8.7-10.7) mg/dL Magnesium 2.3 (1.6-2.4) mg/dL Total Bilirubin (0.3-1.2) mg/dL AST (8-39) IU/L ALT (9-52) IU/L Alkaline Phosphatase (38-126) IU/L CK-MB (CK-2) (0.00-5.00) NG/ML Troponin I (< 0.040) ng/mL NT-Pro-B Natriuret Pep 1390 H (0-125) PG/ML Total Protein (6.1-8.0) g/dL Albumin (3.5-4.8) g/dL Globulin (2.50-4.10) g/dL Albumin/Globulin Ratio (1.3-2.0) mg/g TSH 4.11 (0.2700-4.2000) uIU/mL Free T4 (0.93-1.71) ng/dL 12/29/17 12/29/17 12/29/17 Range/Units 11:40 11:40 11:40 WBC 11.36 H (4.8-10.8) 10^3/uL RBC 3.32 L (4.20-5.40) 10^6/uL Hgb 10.7 L (12.0-16.0) g/dL Hct 34.0 L (37.0-47.0) % MCV 102.4 H (81-99) FL MCH 32.2 H (27-31) PG MCHC 31.5 L (33-37) g/dL RDW Std Deviation 56.6 H (39-50) fL RDW Coeff of Miranda 15.7 H (11.5-14.5) % Plt Count 273 (140-350) 10*3/uL MPV 10.1 (7.4-12.2) FL Immature Gran % (Auto) 0.3 (0-5) % Neut % (Auto) 63.9 (50-80) % Lymph % (Auto) 25.1 (10-50) % Bandera % (Auto) 7.0 (5-15) % Eos % (Auto) 3.3 (0-8) % Baso % (Auto) 0.4 (0-1) % Immature Gran # (Auto) 0.03 10*3/UL Neut # (Auto) 7.27 10*3/UL Lymph # (Auto) 2.85 10*3/uL Bandera # (Auto) 0.79 (0.3-0.8) 10*3/UL Eos # (Auto) 0.37 10*3/UL Baso # (Auto) 0.05 10*3/UL WBC Morphology Comment Normal morphology (NORM) Plt Morphology Comment Normal morphology (NORM) RBC Morph Comment Normal morphology (NORM) PT (9.7-11.4) secs INR (0.00-5.90) N/A D-Dimer 0.81 H (0.00-0.59) mg/L Sodium 139 (135-145) meq/L Potassium 5.5 H (3.8-5.2) meq/L Chloride 106 (98-112) meq/L Carbon Dioxide 18 L (23-33) meq/L Anion Gap 15 (5-20) BUN 49 H (7-22) mg/dL Creatinine 3.3 H (0.50-1.20) mg/dL Estimated GFR 14 (>60 ml/min/1.73m(2)) BUN/Creatinine Ratio 14.84 (6-20) Glucose 199 H (78-110) mg/dL Calculated Osmolality 306.0 H (267-292) mOsm/kg Calcium 10.8 H (8.7-10.7) mg/dL Magnesium (1.6-2.4) mg/dL Total Bilirubin 0.4 (0.3-1.2) mg/dL AST 29 (8-39) IU/L ALT 25 (9-52) IU/L Alkaline Phosphatase 131 H (38-126) IU/L CK-MB (CK-2) (0.00-5.00) NG/ML Troponin I (< 0.040) ng/mL NT-Pro-B Natriuret Pep (0-125) PG/ML Total Protein 8.5 H (6.1-8.0) g/dL Albumin 4.7 (3.5-4.8) g/dL Globulin 3.8 (2.50-4.10) g/dL Albumin/Globulin Ratio 1.20 L (1.3-2.0) mg/g TSH (0.2700-4.2000) uIU/mL Free T4 (0.93-1.71) ng/dL 12/29/17 12/29/17 12/29/17 Range/Units 11:40 18:02 23:47 WBC (4.8-10.8) 10^3/uL RBC (4.20-5.40) 10^6/uL Hgb (12.0-16.0) g/dL Hct (37.0-47.0) % MCV (81-99) FL MCH (27-31) PG MCHC (33-37) g/dL RDW Std Deviation (39-50) fL RDW Coeff of Miranda (11.5-14.5) % Plt Count (140-350) 10*3/uL MPV (7.4-12.2) FL Immature Gran % (Auto) (0-5) % Neut % (Auto) (50-80) % Lymph % (Auto) (10-50) % Bandera % (Auto) (5-15) % Eos % (Auto) (0-8) % Baso % (Auto) (0-1) % Immature Gran # (Auto) 10*3/UL Neut # (Auto) 10*3/UL Lymph # (Auto) 10*3/uL Band[place] # (Auto) (0.3-0.8) 10*3/UL Eos # (Auto) 10*3/UL Baso # (Auto) 10*3/UL WBC Morphology Comment (NORM) Plt Morphology Comment (NORM) RBC Morph Comment (NORM) PT (9.7-11.4) secs INR (0.00-5.90) N/A D-Dimer (0.00-0.59) mg/L Sodium (135-145) meq/L Potassium (3.8-5.2) meq/L Chloride (98-112) meq/L Carbon Dioxide (23-33) meq/L Anion Gap (5-20) BUN (7-22) mg/dL Creatinine (0.50-1.20) mg/dL Estimated GFR (>60 ml/min/1.73m(2)) BUN/Creatinine Ratio (6-20) Glucose (78-110) mg/dL Calculated Osmolality (267-292) mOsm/kg Calcium (8.7-10.7) mg/dL Magnesium (1.6-2.4) mg/dL Total Bilirubin (0.3-1.2) mg/dL AST (8-39) IU/L ALT (9-52) IU/L Alkaline Phosphatase (38-126) IU/L CK-MB (CK-2) 1.09 (0.00-5.00) NG/ML Troponin I < 0.012 0.050 H 0.060 H (< 0.040) ng/mL NT-Pro-B Natriuret Pep (0-125) PG/ML Total Protein (6.1-8.0) g/dL Albumin (3.5-4.8) g/dL Globulin (2.50-4.10) g/dL Albumin/Globulin Ratio (1.3-2.0) mg/g TSH (0.2700-4.2000) uIU/mL Free T4 (0.93-1.71) ng/dL 12/30/17 12/30/17 12/30/17 Range/Units 05:07 05:07 05:07 WBC 9.39 (4.8-10.8) 10^3/uL RBC 2.76 L (4.20-5.40) 10^6/uL Hgb 8.7 L (12.0-16.0) g/dL Hct 28.6 L (37.0-47.0) % MCV 103.6 H (81-99) FL MCH 31.5 H (27-31) PG MCHC 30.4 L (33-37) g/dL RDW Std Deviation 57.1 H (39-50) fL RDW Coeff of Miranda 15.8 H (11.5-14.5) % Plt Count 226 (140-350) 10*3/uL MPV 9.8 (7.4-12.2) FL Immature Gran % (Auto) 0.2 (0-5) % Neut % (Auto) 69.1 (50-80) % Lymph % (Auto) 19.1 (10-50) % Bandera % (Auto) 6.9 (5-15) % Eos % (Auto) 4.3 (0-8) % Baso % (Auto) 0.4 (0-1) % Immature Gran # (Auto) 0.02 10*3/UL Neut # (Auto) 6.49 10*3/UL Lymph # (Auto) 1.79 10*3/uL Bandera # (Auto) 0.65 (0.3-0.8) 10*3/UL Eos # (Auto) 0.40 10*3/UL Baso # (Auto) 0.04 10*3/UL WBC Morphology Comment Normal morphology (NORM) Plt Morphology Comment Normal morphology (NORM) RBC Morph Comment Normal morphology (NORM) PT 11.4 (9.7-11.4) secs INR 1.11 (0.00-5.90) N/A D-Dimer (0.00-0.59) mg/L Sodium 137 (135-145) meq/L Potassium 5.5 H (3.8-5.2) meq/L Chloride 109 (98-112) meq/L Carbon Dioxide 17 L (23-33) meq/L Anion Gap 11 (5-20) BUN 46 H (7-22) mg/dL Creatinine 3.1 H (0.50-1.20) mg/dL Estimated GFR 15 (>60 ml/min/1.73m(2)) BUN/Creatinine Ratio 14.83 (6-20) Glucose 153 H (78-110) mg/dL Calculated Osmolality 298.0 H (267-292) mOsm/kg Calcium 10.1 (8.7-10.7) mg/dL Magnesium (1.6-2.4) mg/dL Total Bilirubin 0.3 (0.3-1.2) mg/dL AST 13 (8-39) IU/L ALT 26 (9-52) IU/L Alkaline Phosphatase 102 (38-126) IU/L CK-MB (CK-2) (0.00-5.00) NG/ML Troponin I (< 0.040) ng/mL NT-Pro-B Natriuret Pep (0-125) PG/ML Total Protein 6.6 (6.1-8.0) g/dL Albumin 3.6 (3.5-4.8) g/dL Globulin 3.0 (2.50-4.10) g/dL Albumin/Globulin Ratio 1.20 L (1.3-2.0) mg/g TSH (0.2700-4.2000) uIU/mL Free T4 (0.93-1.71) ng/dL 12/30/17 12/30/17 Range/Units 05:07 08:50 WBC (4.8-10.8) 10^3/uL RBC (4.20-5.40) 10^6/uL Hgb (12.0-16.0) g/dL Hct (37.0-47.0) % MCV (81-99) FL MCH (27-31) PG MCHC (33-37) g/dL RDW Std Deviation (39-50) fL RDW Coeff of Miranda (11.5-14.5) % Plt Count (140-350) 10*3/uL MPV (7.4-12.2) FL Immature Gran % (Auto) (0-5) % Neut % (Auto) (50-80) % Lymph % (Auto) (10-50) % Bandera % (Auto) (5-15) % Eos % (Auto) (0-8) % Baso % (Auto) (0-1) % Immature Gran # (Auto) 10*3/UL Neut # (Auto) 10*3/UL Lymph # (Auto) 10*3/uL Bandera # (Auto) (0.3-0.8) 10*3/UL Eos # (Auto) 10*3/UL Baso # (Auto) 10*3/UL WBC Morphology Comment (NORM) Plt Morphology Comment (NORM) RBC Morph Comment (NORM) PT (9.7-11.4) secs INR (0.00-5.90) N/A D-Dimer (0.00-0.59) mg/L Sodium (135-145) meq/L Potassium (3.8-5.2) meq/L Chloride (98-112) meq/L Carbon Dioxide (23-33) meq/L Anion Gap (5-20) BUN (7-22) mg/dL Creatinine (0.50-1.20) mg/dL Estimated GFR (>60 ml/min/1.73m(2)) BUN/Creatinine Ratio (6-20) Glucose (78-110) mg/dL Calculated Osmolality (267-292) mOsm/kg Calcium (8.7-10.7) mg/dL Magnesium (1.6-2.4) mg/dL Total Bilirubin (0.3-1.2) mg/dL AST (8-39) IU/L ALT (9-52) IU/L Alkaline Phosphatase (38-126) IU/L CK-MB (CK-2) (0.00-5.00) NG/ML Troponin I 0.042 H (< 0.040) ng/mL NT-Pro-B Natriuret Pep (0-125) PG/ML Total Protein (6.1-8.0) g/dL Albumin (3.5-4.8) g/dL Globulin (2.50-4.10) g/dL Albumin/Globulin Ratio (1.3-2.0) mg/g TSH 3.27 (0.2700-4.2000) uIU/mL Free T4 0.90 L (0.93-1.71) ng/dL History and Physical pertinent to Admission: Course of Hospitalization: This very nice 72-year-old female with past medical history of atrial fibrillation. Comes into the ER with the mild chest pain which resolved even before getting to the ER. Was found to be in A. fib RVR. Was admitted to the ICU on diltiazem drip her A. fib and the is now rate controlled on metoprolol 50 twice a day. Her troponins were slightly elevated very mildly most likely from my strain. The last troponin was trending down. Patient also has chronic renal failure with a creatinine of 3.3 today 3.1. I did give her the option of maybe doing a stress test chemical stress test but then also if this is positive she will need a catheter which in her case would put her on dialysis or we can opt to treat this medically after this discussion was made the patient and did not want any more procedures in this regards an absolutely did not want to go on dialysis and weight as long as possible she feels good and does not want any stress test. I put her on anticoagulation L Aquinas 2.5 twice a day reduced dose for her reduced renal clearance. Patient is a little anemic at 8.7 she will continue taking folic acid B12 and iron repeat labs in the a few days. Resume all her other usual medications she will be discharged back to [facility] discussed with nursing which also agrees with the plan On the date of discharge, the patient was examined: Gen.: [No acute distress, alert, nontoxic] Heart: [Regular rate and rhythm, no murmurs, clicks, gallops, or rubs] Lungs: [Clear to auscultation bilaterally, breathing is nonlabored] Abdomen/GI: [Normal tones on auscultation, soft, nontender, nondistended] Musculoskeletal/extremities: [No clubbing, cyanosis, or edema] Vitals reviewed and are listed below Vital Signs (24 hrs) Temp Pulse Pulse Pulse Pulse Resp BP 12/30/17 11:00 69 12/30/17 08:17 98.5 F 82 16 12/30/17 07:00 73 12/30/17 06:54 75 75 18 12/30/17 05:28 97.1 F 73 20 156/74 12/30/17 04:47 12/30/17 03:07 97.6 F 68 18 131/67 12/30/17 03:00 67 12/30/17 01:06 76 19 156/72 12/29/17 23:56 12/29/17 23:15 72 20 148/76 12/29/17 23:00 75 12/29/17 20:46 67 21 137/67 12/29/17 19:00 98.1 F 66 65 65 20 126/63 12/29/17 15:00 70 12/29/17 14:30 98.6 F 72 18 12/29/17 14:28 75 14 12/29/17 12:19 110 H BP BP Pulse Ox 12/30/17 11:00 96 12/30/17 08:17 148/67 97 12/30/17 07:00 12/30/17 06:54 98 12/30/17 05:28 97 12/30/17 04:47 96 12/30/17 03:07 96 12/30/17 03:00 96 12/30/17 01:06 94 12/29/17 23:56 98 12/29/17 23:15 95 12/29/17 23:00 12/29/17 20:46 95 12/29/17 19:00 92 12/29/17 15:00 96 12/29/17 14:30 148/81 98 12/29/17 14:28 12/29/17 12:19 Assessment and Plan: 1. As per discharge assessments above 2. Disposition: [facility] 3. Condition on discharge, stable and improved. 4. Diet: regular diet 5. Activities: resume normal activities 6. Follow-Up: 1. [PCP] Dr. Callahan 2. 7. Medications at the Time of Discharge: Home Medications 3 Medication Instructions Recorded Confirmed Type Blood Sugar Diagnostic [Assure 0 ea .ROUTE .MEDSUPPLY 04/20/17 12/29/17 History Prism Multi] oxycodone-acetaminophen 5 mg-325 1 tab PO Q6H PRN #120 tab 05/08/17 12/29/17 Rx mg tablet levothyroxine 88 mcg capsule 88 mcg PO ONCE #10 cap 06/09/17 12/29/17 Rx torsemide 20 mg tablet 20 mg PO QDAY #10 tab 06/09/17 12/29/17 Rx venlafaxine ER 150 mg 150 mg PO QAM #10 cap 06/09/17 12/29/17 Rx capsule,extended release 24 hr calcium carbonate 200 mg calcium 200 mg PO TID tab 10/05/17 12/29/17 History (500 mg) chewable tablet cyanocobalamin (vit B-12) 1,000 1,000 mcg IM QWEEK ea 10/05/17 12/29/17 History mcg/mL injection kit folic acid 1 mg tablet 1 mg PO QDAY 10/05/17 12/29/17 History melatonin 3 mg tablet 6 mg PO QHS tab 10/05/17 12/29/17 History sodium bicarbonate-sodium chloride 30 ea MISCELLANEOUS PRN 10/05/17 12/29/17 History powder cholecalciferol (vitamin D3) 50,000 unit PO QWEEK cap 12/04/17 12/29/17 History 50,000 unit capsule lidocaine 4 % topical patch 1 patch TOPICAL BID PRN 12/04/17 12/29/17 History Apixaban [Eliquis] 2.5 mg PO BID #60 tab 12/30/17 Rx Aspirin Chewable Tab 324 mg PO ONCE (ED) tab 12/30/17 Rx Calcium Carbonate [Tums] 1 tab PO TID tab.chew 12/30/17 Rx Ferrous Gluconate 325 mg PO DAILY #14 tab 12/30/17 Rx Metoprolol Tartrate Tab 50 mg PO BID #60 tab 12/30/17 Rx [Lopressor Tab] 8. Time, care, counseling and coordination of care for this discharge is greater than 30 minutes. Exam - Vitals Vital Signs: Vital Signs Temperature 98.5 F Temperature Source Temporal Artery Scan Pulse Rate [Telemetry] 82 Pulse Rate [Apical] 75 Pulse Rate [Pulse Oximeter] 72 Pulse Rate 69 Respiratory Rate 16 Blood Pressure [Left Radial 148/67 Artery] Blood Pressure [Right Radial 148/81 Artery] Blood Pressure [Left Arm] 156/74 Pulse Ox 96 Oxygen Flow Rate 1 Oxygen Delivery Method Room Air Height 5 ft 3 in Weight 291 lb 8 oz Patient Problems - Patient Problem List (1) Atrial fibrillation with RVR Current Visit: Yes Status: Acute Code(s): I48.91 - Unspecified atrial fibrillation Category: Medical (2) Chronic renal failure Current Visit: No Status: Acute Code(s): N18.9 - Chronic kidney disease, unspecified Qualifiers: Category: Medical (3) Hyperkalemia Current Visit: No Status: Acute Code(s): E87.5 - Hyperkalemia Category: Medical (4) Hypertension Current Visit: No Status: Acute Code(s): I10 - Essential (primary) hypertension Qualifiers: Category: Medical (5) Hypothyroidism Current Visit: No Status: Chronic Onset Date: 02/04/16 Code(s): E03.9 - Hypothyroidism, unspecified Qualifiers: Category: Medical (6) Type 2 diabetes mellitus with diabetic neuropathy, without long-term current use of insulin Current Visit: No Status: Chronic Onset Date: 10/17/16 Code(s): E11.40 - Type 2 diabetes mellitus with diabetic neuropathy, unspecified Category: Medical
[2017-12-30 12:36] VITALS: BP 154/75; RESP 18; TEMP 97.1; O2SAT 98
[2017-12-30] MEDS ORDERED: CALCIUM CARBONATE 500 MG (TUMS) CHEWABLE TABLET PO SCH (15:00)
[2017-12-30] MEDS ORDERED: LIDOCAINE 700 MG PATCH TOPICAL SCH (19:00)
[2017-12-30] MEDS ORDERED: Apixaban 5 MG TABLET PO SCH (21:00)
[2017-12-30] MEDS ORDERED: MELATONIN 5 MG TABLET PO SCH (21:00)
[2017-12-30] MEDS ORDERED: Metoprolol TARTRATE Tab 50 MG TAB PO SCH (21:00)
[2017-12-31] MEDS ORDERED: LEVOTHYROXINE 88 MCG TABLET PO SCH (05:30)
[2017-12-31] MEDS ORDERED: FUROSEMIDE 40 MG TABLET PO SCH (07:00)
[2017-12-31] MEDS ORDERED: Patch Removal LIDOCAINE PATCH TRANSDERM SCH (07:00)
[2017-12-31] MEDS ORDERED: VENLAFAXINE XR 75 MG CAP PO SCH (09:00)
[2017-12-31] MEDS ORDERED: ERGOCALCIFEROL 50,000 IU CAPSULE PO SCH (09:00)
== END 2017-12-30 13:16 | DRG 310 ==
LOC: ER 11:10 → ICU 12:00 → MED/SURG 14:10
PROVIDERS: ADMIT Internal Medicine; ATTEND Internal Medicine